=== PATIENT | male | born 1970 | race Caucasian/White ===

== ENCOUNTER 2017-03-07 02:26 | Emergency (ER) | payer SELFPAY ==
[2017-03-07 03:25] LABS: APPEARANCE,URINE CLEAR; BILIRUBIN,URINE NEGATIVE (NEGATIVE); GLUCOSE, URINE NEGATIVE (NEGATIVE); KETONES,URINE NEGATIVE (NEGATIVE); LEUKOCYTE ESTERASE,URINE NEGATIVE (NEGATIVE); NITRITE,URINE NEGATIVE (NEGATIVE); PROTEIN,URINE NEGATIVE (NEGATIVE); URINE SPECIFIC GRAVITY 1.001; UROBILINOGEN,URINE NEGATIVE mg/dL (<2.0)
--- NOTE | 2017-03-07 03:28 | ER Document Report ---
ED General - General Stated Complaint: FOOT SWELLING Time Seen by Provider: 03/07/17 02:32 Mode of Arrival: Medic Information source: Patient, Emergency Med Personnel Notes: Patient presents emergency department via EMS for complaints of toe pain and positive EtOH. Patient requesting detox. Patient reports he hurt his toe approximately 2 weeks ago. He states the toe was purple but now is looking better. Reports toe is so painful he has a hard time walking. Denies other sx such as fever/vomiting/ diarrhea. TRAVEL OUTSIDE OF THE [place] IN LAST 30 DAYS: No - HPI Onset: Other Onset/Duration: Persistent Quality of pain: Achy Associated symptoms: None Exacerbated by: Walking Relieved by: Denies Similar symptoms previously: No Recently seen / treated by doctor: No - Related Data Allergies/Adverse Reactions: bacitracin [From Neosporin] Allergy (Verified 12/20/12 01:16) bacitracin zinc [From Neosporin] Allergy (Verified 12/20/12 01:16) gramicidin D [From Neosporin] Allergy (Verified 12/20/12 01:16) neomycin sulfate [From Neosporin] Allergy (Verified 12/20/12 01:16) polymyxin B [From Neosporin] Allergy (Verified 12/20/12 01:16) polymyxin B sulfate [From Neosporin] Allergy (Verified 12/20/12 01:16) Past Medical History - General Information source: Patient - Social History Smoking Status: Current Every Day Smoker Cigarette use (# per day): Yes Chew tobacco use (# tins/day): No Frequency of alcohol use: Heavy Drug Abuse: Methamphetamine Lives with: Family - brother Family History: Reviewed & Not Pertinent - Past Medical History Cardiac Medical History: Reports: Hx Hypertension Past Surgical History: Reports: Hx Orthopedic Surgery Review of Systems - Review of Systems Notes: Review HPI for review of systems., All other systems negative Physical Exam - Vital signs Vitals: Resp Pulse Ox 12 98 03/07/17 02:42 03/07/17 02:42 - Notes Notes: PHYSICAL EXAMINATION: GENERAL: nontoxic looking, answers all questions appropriately HEAD: Atraumatic, normocephalic. EYES: Pupils equal round and reactive to light, extraocular movements intact, sclera anicteric, conjunctiva are normal. ENT: nares patent, Moist mucous membranes. NECK: Normal range of motion, supple without lymphadenopathy LUNGS: CTAB and equal. No wheezes rales or rhonchi. no cough HEART: Regular rate and rhythm without murmurs ABDOMEN: Soft, no tenderness. No guarding, no rebound EXTREMITIES: Normal range of motion, no pitting edema. No cyanosis. right great toe with swelling, erythema, scaling toenail, NEUROLOGICAL: Cranial nerves grossly intact. Normal sensory/motor exams. PSYCH: Normal mood, normal affect. SKIN: Warm, Dry, normal turgor, no rashes or lesions noted Course - Re-evaluation Re-evalutation: 03/07/17 03:38 Patient left the building was found in a parking lot patient is walking steady. Patient was encouraged to return to the emergency department needed. Patient admits to EtOH and using meth. Complaining that his foot was hurting will give him some Tylenol 03/07/17 03:[address] coates, pt reports he will stay for evaluation 03/07/17 05:10 + comminuted intraarticular fracture. Patient requesting to leave. He is alert and oriented walking steadily not slurring his words. Reviewed his labs and x-ray with him. Patient was instructed to follow-up with [place] [facility] for detox. pt declined ori tape or any further treatment - Vital Signs Vital signs: Temp Pulse Resp BP Pulse Ox 21 H 163/111 H 98 03/07/17 03:01 03/07/17 04:16 03/07/17 04:16 - Laboratory Result Diagrams: 03/07/17 03:47 03/07/17 03:47 Laboratory results interpreted by me: 03/07/17 03/07/17 03:47 03:47 MCV 100 H Seg Neutrophils % 38.7 L Monocytes % 13.3 H Potassium 5.1 H AST 172 H ALT 151 H Alkaline Phosphatase 145 H Total Protein 8.6 H Salicylates < 1.0 L Acetaminophen < 10 L - EKG Interpretation by Pr EKG shows normal: Sinus rhythm Rate: Tachycardia Discharge - Discharge Clinical Impression: Elevated blood pressure reading, Alcohol abuse, Substance abuse Fractured great toe Qualifiers: Encounter type: initial encounter Fracture type: closed Phalanx: distal Fracture alignment: nondisplaced Laterality: right Qualified Code(s): S92.424A - Nondisplaced fracture of distal phalanx of right great toe, initial encounter for closed fracture Condition: Stable Disposition: HOME, SELF-CARE Instructions: Fracture ([facility]), High Blood Pressure, Requiring Treatment ([facility]), Chronic Alcoholism ([facility]) Additional Instructions: *You have been evaluated for Chronic alcohol abuse, FRACTURED GREAT TOE, elevated blood pressure *Your xray showed a comminuted intra-articular fracture of the right great toe *Maintain the ori tape *Follow up with orthopedics this week *Rest/Ice/Elevate your foot, monitor your foot for increased pain, swelling, warmth, redness which would indicate infection *Follow up with a primary care provider to treat your blood pressure *Avoid alcohol, seek assistance from [facility] [employer] [facility], alcoholics anonymous. *Take tylenol as indicated *Return to ED for worsening condition, changes, needs Forms: Elevated Blood Pressure
[2017-03-07 03:39] LABS: URINE BARBITURATES SCREEN NEGATIVE; URINE METHADONE SCREEN NEGATIVE; URINE OPIATES LOW NEGATIVE; URINE PHENCYCLIDINE SCREEN NEGATIVE
[2017-03-07] MEDS ORDERED: ACETAMINOPHEN 325 MG TABLET PO ONE (03:39)
[2017-03-07 03:46] LABS: WBC,URINE RARE /HPF
[2017-03-07 04:06] LABS: ABSOLUTE EOSINOPHILS # (AUTO) 0.2 10^3/uL (0.0-0.6); ABSOLUTE MONOCYTES (AUTO) 0.9 10^3/uL (0.1-1.4); ABSOLUTE NEUT (AUTO) 2.6 10^3/uL (1.7-8.2); BASOPHILS % (AUTO) 0.7 % (0-2); EOSINOPHILS % (AUTO) 2.5 % (0-6); HEMATOCRIT 46.4 % (37.9-51.0); HEMOGLOBIN 15.2 g/dL (13.5-17.0); HGB HCT DIFFERENCE -0.8; LYMPHOCYTES % (AUTO) 44.8 % (13-45); MEAN CORPUSCULAR HEMOGLOBIN 32.8 pg (27.0-33.4); MEAN CORPUSCULAR HGB CONC 32.8 g/dL (32.0-36.0); MEAN CORPUSCULAR VOLUME 100 fl (80-97); MONOCYTES % (AUTO) 13.3 % (3-13); RED BLOOD COUNT 4.63 10^6/uL (4.35-5.55); SEGMENTED NEUTROPHILS % (AUTO) 38.7 % (42-78); WHITE BLOOD COUNT 6.7 10^3/uL (4.0-10.5)
[2017-03-07 04:21] VITALS: BP 163/111
[2017-03-07 04:23] LABS: ALANINE AMINOTRANSFERASE 151 U/L (21-72); ALBUMIN 4.7 g/dL (3.5-5.0); ALKALINE PHOSPHATASE 145 U/L (38-126); ANION GAP 15 (5-19); ASPARTATE AMINO TRANSFERASE 172 U/L (17-59); BILIRUBIN,DIRECT 0.3 mg/dL (0.0-0.4); BILIRUBIN,TOTAL 0.6 mg/dL (0.2-1.3); BLOOD UREA NITROGEN 12 mg/dL (7-20); CALCIUM 9.6 mg/dL (8.4-10.2); CARBON DIOXIDE 29 mmol/L (22-30); CHLORIDE 100 mmol/L (98-107); CREATININE RESULT 0.81 mg/dL (0.52-1.25); GLUCOSE 94 mg/dL (75-110); POTASSIUM 5.1 mmol/L (3.6-5.0); SODIUM 143.7 mmol/L (137-145); TOTAL PROTEIN 8.6 g/dL (6.3-8.2)
--- NOTE | 2017-03-07 05:01 | RADIOLOGY REPORT (SQ) ---
EXAM DESCRIPTION: FOOT RIGHT COMPLETE COMPLETED DATE/TIME: 03/07/2017 4:48 am REASON FOR STUDY: PAIN, GREAT TOE SWELLING,ERYTHEMA COMPARISON: None. NUMBER OF VIEWS: Three views. TECHNIQUE: AP, lateral and oblique radiographic images acquired of the right foot. LIMITATIONS: None. FINDINGS: MINERALIZATION: Normal. BONES: Comminuted intra-articular fracture of the right 1st proximal phalanx with 0.3 cm distraction, involvement of the entire diaphysis, and extension into the right 1st IP joint ; no evidence of heal ing in new compared with prior radiographs from 09/21/2014. Moderate deformity -sclerosis of the talo calcaneal and calcaneal cuboid joints, with diminished calcaneal inclination, stable. JOINTS: No effusions. SOFT TISSUES: No soft tissue swelling. No foreign body. OTHER: No other significant finding. IMPRESSION: Comminuted intra-articular fracture of the right 1st proximal phalanx. TECHNICAL DOCUMENTATION: JOB ID: [id number] [employer]- All Rights Reserved
--- NOTE | 2017-03-07 08:41 | EKG REPORT ---
SEVERITY:- ABNORMAL ECG - SINUS TACHYCARDIA LEFT VENTRICULAR HYPERTROPHY ST ELEV, PROBABLE NORMAL EARLY REPOL PATTERN BORDERLINE PROLONGED QT INTERVAL : Confirmed by: Polo Dickey 07-Mar-2017 08:40:20
== END 2017-03-07 05:30 | disposition home or self-care (01) ==
LOC: ER 02:26
DX: S92.414A Nondisplaced fracture of proximal phalanx of right great toe, initial encounter for closed fracture (principal); X58.XXXA Exposure to other specified factors, initial encounter; F10.10 Alcohol abuse, uncomplicated; F15.10 Other stimulant abuse, uncomplicated; I10 Essential (primary) hypertension; R00.0 Tachycardia, unspecified; F17.210 Nicotine dependence, cigarettes, uncomplicated; Z88.3 Allergy status to other anti-infective agents
CPT/HCPCS: 36415; 80053; 80307; 81001; 85025; 93005; 93010; 99284

== ENCOUNTER 2017-03-25 19:30 | Emergency (ER) | payer SELFPAY ==
--- NOTE | 2017-03-25 19:54 | ER Document Report ---
ED Medical Screen (RME) - General Chief Complaint: ETOH Abuse Stated Complaint: ETOH Time Seen by Provider: 03/25/17 19:51 Mode of Arrival: Medic Information source: Patient TRAVEL OUTSIDE OF THE [place] IN LAST 30 DAYS: No - HPI Patient complains to provider of: detox from ETOH, meth Onset: Other - pt states he is "tired" of abusing alcohol and meth and wants help with detox from these. He denies SI and HI - Related Data Allergies/Adverse Reactions: bacitracin [From Neosporin] Allergy (Verified 12/20/12 01:16) bacitracin zinc [From Neosporin] Allergy (Verified 12/20/12 01:16) gramicidin D [From Neosporin] Allergy (Verified 12/20/12 01:16) neomycin sulfate [From Neosporin] Allergy (Verified 12/20/12 01:16) polymyxin B [From Neosporin] Allergy (Verified 12/20/12 01:16) polymyxin B sulfate [From Neosporin] Allergy (Verified 12/20/12 01:16) Past Medical History - Past Medical History Cardiac Medical History: Reports: Hx Hypertension Renal/ Medical History: Denies: Hx Peritoneal Dialysis Past Surgical History: Reports: Hx Orthopedic Surgery Physical Exam - Vital signs Vitals: Temp Pulse Resp BP Pulse Ox 98.3 F 83 18 137/100 H 97 03/25/17 19:37 03/25/17 19:37 03/25/17 19:37 03/25/17 19:37 03/25/17 19:37 Course - Vital Signs Vital signs: Temp Pulse Resp BP Pulse Ox 98.3 F 83 18 137/100 H 97 03/25/17 19:37 03/25/17 19:37 03/25/17 19:37 03/25/17 19:37 03/25/17 19:37
[2017-03-25 20:17] LABS: ABSOLUTE EOSINOPHILS # (AUTO) 0.2 10^3/uL (0.0-0.6); ABSOLUTE LYMPHOCYTES (AUTO) 2.3 10^3/uL (0.5-4.7); ABSOLUTE MONOCYTES (AUTO) 0.6 10^3/uL (0.1-1.4); ABSOLUTE NEUT (AUTO) 1.5 10^3/uL (1.7-8.2); BASOPHILS % (AUTO) 0.8 % (0-2); EOSINOPHILS % (AUTO) 3.5 % (0-6); HEMATOCRIT 43.7 % (37.9-51.0); HEMOGLOBIN 14.4 g/dL (13.5-17.0); HGB HCT DIFFERENCE -0.5; LYMPHOCYTES % (AUTO) 49.8 % (13-45); MEAN CORPUSCULAR HEMOGLOBIN 33.6 pg (27.0-33.4); MEAN CORPUSCULAR VOLUME 102 fl (80-97); MONOCYTES % (AUTO) 13.2 % (3-13); RED CELL DISTRIBUTION WIDTH 14.3 % (11.5-14.0); SEGMENTED NEUTROPHILS % (AUTO) 32.7 % (42-78); WHITE BLOOD COUNT 4.7 10^3/uL (4.0-10.5)
[2017-03-25 20:37] LABS: ALANINE AMINOTRANSFERASE 396 U/L (21-72); ALBUMIN 4.2 g/dL (3.5-5.0); ALKALINE PHOSPHATASE 126 U/L (38-126); ANION GAP 13 (5-19); ASPARTATE AMINO TRANSFERASE 509 U/L (17-59); BILIRUBIN,DIRECT 0.3 mg/dL (0.0-0.4); BILIRUBIN,TOTAL 0.5 mg/dL (0.2-1.3); BLOOD UREA NITROGEN 10 mg/dL (7-20); CALCIUM 8.9 mg/dL (8.4-10.2); CARBON DIOXIDE 22 mmol/L (22-30); CHLORIDE 110 mmol/L (98-107); CREATININE RESULT 0.76 mg/dL (0.52-1.25); GLUCOSE 101 mg/dL (75-110); POTASSIUM 4.7 mmol/L (3.6-5.0); SODIUM 144.6 mmol/L (137-145); TOTAL PROTEIN 7.8 g/dL (6.3-8.2)
--- NOTE | 2017-03-25 20:41 | ER Document Report ---
ED Psych Disorder / Suicide - General Chief Complaint: ETOH Abuse Stated Complaint: ETOH Time Seen by Provider: 03/25/17 19:51 Mode of Arrival: Medic Notes: Patient is a 46-year-old male, past medical history alcoholism, chronic methamphetamine abuse, presents with thoughts of killing his brother. He said that he was drinking alcohol, abusing meth and is requesting detox. In addition , he is also having pain of his right first toe for the past 3 weeks after he dropped a heavy block on it. He had an x-ray completed in the ER which showed a comminuted first phalanx. He has not taken anything to help and has not seen orthopedics or podiatry for this. Denies suicidal ideation, fevers, numbness, tingling, chest pain, hallucinations, nausea, vomiting or headache. TRAVEL OUTSIDE OF THE [place] IN LAST 30 DAYS: No - Related Data Allergies/Adverse Reactions: bacitracin [From Neosporin] Allergy (Verified 12/20/12 01:16) bacitracin zinc [From Neosporin] Allergy (Verified 12/20/12 01:16) gramicidin D [From Neosporin] Allergy (Verified 12/20/12 01:16) neomycin sulfate [From Neosporin] Allergy (Verified 12/20/12 01:16) polymyxin B [From Neosporin] Allergy (Verified 12/20/12 01:16) polymyxin B sulfate [From Neosporin] Allergy (Verified 12/20/12 01:16) Past Medical History - General Information source: Patient - Social History Smoking Status: Current Every Day Smoker Frequency of alcohol use: Heavy Drug Abuse: Methamphetamine Family History: Reviewed & Not Pertinent Patient has suicidal ideation: No Patient has homicidal ideation: Yes - Past Medical History Cardiac Medical History: Reports: Hx Hypertension Renal/ Medical History: Denies: Hx Peritoneal Dialysis Past Surgical History: Reports: Hx Orthopedic Surgery - Immunizations Hx Diphtheria, Pertussis, Tetanus Vaccination: No Review of Systems - Review of Systems Notes: REVIEW OF SYSTEMS: CONSTITUTIONAL: -fevers, -chills EENT: -eye pain, -difficulty swallowing, -nasal congestion CARDIOVASCULAR:-chest pain, -syncope. RESPIRATORY: -cough, -SOB GASTROINTESTINAL: -abdominal pain, -nausea, -vomiting, -diarrhea GENITOURINARY: -dysuria, -hematuria MUSCULOSKELETAL: +toe pain, -back pain, -neck pain SKIN: -rash or skin lesions. HEMATOLOGIC: -easy bruising or bleeding. LYMPHATIC: -swollen, enlarged glands. NEUROLOGICAL: -altered mental status or loss of consciousness, -headache, - neurologic symptoms PSYCHIATRIC: -anxiety, -depression, +homicidal ideation, +chronic ETOH/meth abuse ALL OTHER SYSTEMS REVIEWED AND NEGATIVE. Physical Exam - Vital signs Vitals: Temp Pulse Resp BP Pulse Ox 98.3 F 83 18 137/100 H 97 03/25/17 19:37 03/25/17 19:37 03/25/17 19:37 03/25/17 19:37 03/25/17 19:37 - Notes Notes: PHYSICAL EXAMINATION: GENERAL: Well-appearing, well-nourished and in no acute distress. Disheveled. HEAD: Atraumatic, normocephalic. EYES: Pupils equal round and reactive to light, extraocular movements intact, sclera anicteric, conjunctiva are normal. ENT: nares patent, oropharynx clear without exudates. Moist mucous membranes. NECK: Normal range of motion, supple without lymphadenopathy LUNGS: Breath sounds clear to auscultation bilaterally and equal. No wheezes rales or rhonchi. HEART: Regular rate and rhythm without murmurs ABDOMEN: Soft, nontender, normoactive bowel sounds. No guarding, no rebound. No masses appreciated. EXTREMITIES: Swelling and tenderness of right 1st toe. Normal range of motion, no pitting or edema. No cyanosis. NEUROLOGICAL: Cranial nerves grossly intact. Normal speech, normal gait. Normal sensory and motor exams. PSYCH: Depressed mood. Clinically intoxicated. Homicidal ideation (wants to kill brother, no plan). SKIN: Warm, Dry, normal turgor, no rashes or lesions noted. Course - Re-evaluation Re-evalutation: Patient with homicidal ideation. IVC paperwork filled out. He is clinically intoxicated and recently used methamphetamines. He is requesting detox at this time. Will provide Neurontin to help with any withdrawal symptoms. His right big toe is fractured from 3 weeks ago. Instructed him that he must follow-up with orthopedics for further evaluation and treatment. Provided him with Motrin and ice packs to help. Mental Health will evaluate patient in the morning. - Vital Signs Vital signs: Temp Pulse Resp BP Pulse Ox 98.0 F 90 18 141/92 H 98 03/25/17 21:33 03/25/17 21:33 03/25/17 21:33 03/25/17 21:33 03/25/17 21:33 - Laboratory Result Diagrams: 03/25/17 19:55 03/25/17 19:55 Laboratory results interpreted by me: 03/25/17 03/25/17 03/25/17 19:55 19:55 19:55 RBC 4.30 L MCV 102 H MCH 33.6 H RDW 14.3 H Seg Neutrophils % 32.7 L Lymphocytes % 49.8 H Monocytes % 13.2 H Absolute Neutrophils 1.5 L Chloride 110 H AST 509 H ALT 396 H Salicylates < 1.0 L Acetaminophen < 10 L Serum Alcohol 328 H* Discharge - Discharge Clinical Impression: Homicidal ideation Fracture, phalanx, foot Qualifiers: Encounter type: initial encounter Toe: great toe Fracture type: closed Phalanx : unspecified phalanx Fracture alignment: nondisplaced Laterality: right Qualified Code(s): S92.404A - Nondisplaced unspecified fracture of right great toe, initial encounter for closed fracture Condition: Stable Disposition: PSYCH HOSP/UNIT
[2017-03-25 20:44] LABS: APPEARANCE,URINE CLEAR; BILIRUBIN,URINE NEGATIVE (NEGATIVE); GLUCOSE, URINE NEGATIVE (NEGATIVE); KETONES,URINE NEGATIVE (NEGATIVE); LEUKOCYTE ESTERASE,URINE NEGATIVE (NEGATIVE); NITRITE,URINE NEGATIVE (NEGATIVE); PROTEIN,URINE NEGATIVE (NEGATIVE); URINE SPECIFIC GRAVITY 1.004; UROBILINOGEN,URINE NEGATIVE mg/dL (<2.0)
[2017-03-25 20:49] LABS: ALCOHOL 328 mg/dL (NONE DETECTED)
[2017-03-25 21:01] LABS: URINE BARBITURATES SCREEN NEGATIVE; URINE METHADONE SCREEN NEGATIVE; URINE OPIATES LOW NEGATIVE; URINE PHENCYCLIDINE SCREEN NEGATIVE
[2017-03-25] MEDS: IBUPROFEN 600 MG TABLET PO PRN (21:32)
[2017-03-25] MEDS: GABAPENTIN 400 MG CAPSULE PO SCH (21:32)
[2017-03-25] MEDS ORDERED: NICOTINE 21 MG/24 HR PATCH.TD24 TD ONE (22:52)
[2017-03-26] MEDS: IBUPROFEN 600 MG TABLET PO PRN ×2 (02:39→06:42)
[2017-03-26] MEDS: GABAPENTIN 400 MG CAPSULE PO SCH ×2 (06:43→13:06)
--- NOTE | 2017-03-26 09:28 | ER Document Report ---
Doctor's Note Notes: 03/26/17 09:26 I have evaluated this pt. this am and he has no c/o at this time. He feels all of his needs are being met and his physical exam is normal. He is awaiting disposition per mental health.
[2017-03-26 12:58] VITALS: BP 141/79
== END 2017-03-26 13:30 | disposition home or self-care (01) ==
LOC: ER 19:30
DX: S92.404A Nondisplaced unspecified fracture of right great toe, initial encounter for closed fracture (principal); F10.10 Alcohol abuse, uncomplicated; F15.10 Other stimulant abuse, uncomplicated; R45.850 Homicidal ideations; W20.8XXA Other cause of strike by thrown, projected or falling object, initial encounter
CPT/HCPCS: 36415; 80053; 80307; 81001; 85025; 99284

== ENCOUNTER 2017-04-29 20:30 | Emergency (ER) | payer SELFPAY ==
[2017-04-29] MEDS ORDERED: LORAZEPAM INJ 2 MG/1 ML VIAL IV ONE (20:55)
--- NOTE | 2017-04-29 20:55 | ER Document Report ---
ED General - General Stated Complaint: WEAKNESS Time Seen by Provider: 04/29/17 20:43 Mode of Arrival: Ambulatory Information source: Patient Notes: This is a 47-year-old man with a history significant for alcohol abuse, alcohol withdrawal, presents to the emergency room wanting detox. He states his last drink was 1 hour ago. He does state his already has the shakes. TRAVEL OUTSIDE OF THE [place] IN LAST 30 DAYS: No - HPI Onset: Last week Onset/Duration: Gradual Quality of pain: No pain Severity: None Pain Level: Denies Associated symptoms: denies: Chest pain, Fever, Shortness of breath Exacerbated by: Denies Relieved by: Denies Similar symptoms previously: No Recently seen / treated by doctor: No - Related Data Allergies/Adverse Reactions: bacitracin [From Neosporin] Allergy (Verified 12/20/12 01:16) bacitracin zinc [From Neosporin] Allergy (Verified 12/20/12 01:16) gramicidin D [From Neosporin] Allergy (Verified 12/20/12 01:16) neomycin sulfate [From Neosporin] Allergy (Verified 12/20/12 01:16) polymyxin B [From Neosporin] Allergy (Verified 12/20/12 01:16) polymyxin B sulfate [From Neosporin] Allergy (Verified 12/20/12 01:16) Past Medical History - General Information source: Patient - Social History Smoking Status: Never Smoker Cigarette use (# per day): No Chew tobacco use (# tins/day): No Frequency of alcohol use: None Drug Abuse: None Lives with: Family Family History: Reviewed & Not Pertinent Patient has suicidal ideation: No Patient has homicidal ideation: No - Past Medical History Cardiac Medical History: Reports: Hx Hypertension Pulmonary Medical History: Reports: None EENT Medical History: Reports: None Neurological Medical History: Reports: None Endocrine Medical History: Reports: None Renal/ Medical History: Denies: Hx Peritoneal Dialysis GI Medical History: Reports: None Musculoskeltal Medical History: Reports None Skin Medical History: Reports None Psychiatric Medical History: Reports: None Traumatic Medical History: Reports: None Infectious Medical History: Reports: None Past Surgical History: Reports: Hx Orthopedic Surgery - Immunizations Hx Diphtheria, Pertussis, Tetanus Vaccination: No Review of Systems - Review of Systems Constitutional: denies: Chills, Fever EENT: No symptoms reported Cardiovascular: No symptoms reported Respiratory: No symptoms reported Gastrointestinal: No symptoms reported Genitourinary: No symptoms reported Male Genitourinary: No symptoms reported Musculoskeletal: No symptoms reported Skin: No symptoms reported Hematologic/Lymphatic: No symptoms reported Neurological/Psychological: See HPI Physical Exam - Vital signs Vitals: Resp Pulse Ox 11 L 98 04/29/17 20:38 04/29/17 20:38 Notes: Physical exam: GENERAL: Patient is alert and oriented 3, he does have tachycardia with a heart rate of 116 at this time. His blood pressure is currently 160/100. HEAD: Atraumatic, normocephalic. EYES: Pupils equal round and reactive to light, extraocular movements intact, sclera anicteric, conjunctiva are normal. ENT: TMs normal, nares patent, oropharynx clear without exudates. Moist mucous membranes. NECK: Normal range of motion, supple without lymphadenopathy or JVD. LUNGS: Breath sounds clear to auscultation bilaterally and equal. No wheezes rales or rhonchi. HEART: Regular rate and rhythm without murmurs, rubs or gallops. ABDOMEN: Soft, normoactive bowel sounds. No tenderness to palpation. No guarding, no rebound. No masses appreciated. EXTREMITIES: Normal range of motion, no pitting or edema. No clubbing or cyanosis. NEUROLOGICAL: Cranial nerves II through XII grossly intact. Normal speech, normal gait. PSYCH: Normal mood, normal affect. SKIN: Warm, Dry, normal turgor, no rashes or lesions noted. Course - Re-evaluation Re-evalutation: 04/30/17 03:08 The patient is medically stable for psychiatric disposition or discharge. - Vital Signs Vital signs: Temp Pulse Resp BP Pulse Ox 15 173/82 H 98 04/30/17 02:10 04/30/17 02:10 04/30/17 02:10 - Laboratory Result Diagrams: 04/29/17 21:00 04/29/17 21:00 Laboratory results interpreted by me: 04/29/17 04/29/17 04/29/17 21:00 21:00 21:00 MCV 102 H MCH 34.5 H AST 177 H ALT 162 H Urine Protein 30 H Salicylates < 1.0 L Acetaminophen < 10 L - EKG Interpretation by Me Rate: Tachycardia Rhythm: NSR - EKG shows sinus tachycardia with a ventricular rate of 100, there is LVH, PVCs, there does appear to be benign early repolarization. Patient is not having any chest pain or shortness of breath at this time. The patient does have a history of early repolarization as well as LVH on a previous EKG () Discharge - Discharge Clinical Impression: Alcohol intoxication, Alcohol dependence Condition: Stable Disposition: PSYCH HOSP/UNIT
[2017-04-29] MEDS ORDERED: THIAMINE HCL 100 MG in NORMAL SALINE 50 ML IV ONE (20:56)
[2017-04-29] MEDS ORDERED: FOLIC ACID 1 MG TABLET PO ONE (20:56)
[2017-04-29] MEDS: NORMAL SALINE 1000 ML 1,000 ML IV PRN (21:07)
[2017-04-29 21:12] LABS: ABSOLUTE EOSINOPHILS # (AUTO) 0.2 10^3/uL (0.0-0.6); ABSOLUTE LYMPHOCYTES (AUTO) 2.2 10^3/uL (0.5-4.7); ABSOLUTE MONOCYTES (AUTO) 1.1 10^3/uL (0.1-1.4); ABSOLUTE NEUT (AUTO) 5.7 10^3/uL (1.7-8.2); BASOPHILS % (AUTO) 0.5 % (0-2); EOSINOPHILS % (AUTO) 2.3 % (0-6); HEMATOCRIT 47.1 % (37.9-51.0); HGB HCT DIFFERENCE 0.9; LYMPHOCYTES % (AUTO) 23.9 % (13-45); MEAN CORPUSCULAR HEMOGLOBIN 34.5 pg (27.0-33.4); MEAN CORPUSCULAR HGB CONC 33.9 g/dL (32.0-36.0); MEAN CORPUSCULAR VOLUME 102 fl (80-97); MONOCYTES % (AUTO) 11.5 % (3-13); RED BLOOD COUNT 4.64 10^6/uL (4.35-5.55); RED CELL DISTRIBUTION WIDTH 13.6 % (11.5-14.0); SEGMENTED NEUTROPHILS % (AUTO) 61.8 % (42-78); WHITE BLOOD COUNT 9.2 10^3/uL (4.0-10.5)
[2017-04-29 21:15] LABS: APPEARANCE,URINE CLEAR; BILIRUBIN,URINE NEGATIVE (NEGATIVE); GLUCOSE, URINE NEGATIVE (NEGATIVE); KETONES,URINE NEGATIVE (NEGATIVE); LEUKOCYTE ESTERASE,URINE NEGATIVE (NEGATIVE); NITRITE,URINE NEGATIVE (NEGATIVE); PROTEIN,URINE 30 mg/dL (NEGATIVE); UROBILINOGEN,URINE NEGATIVE mg/dL (<2.0)
[2017-04-29 21:28] LABS: URINE BARBITURATES SCREEN NEGATIVE; URINE METHADONE SCREEN NEGATIVE; URINE OPIATES LOW NEGATIVE; URINE PHENCYCLIDINE SCREEN NEGATIVE
[2017-04-29 21:29] LABS: ALANINE AMINOTRANSFERASE 162 U/L (21-72); ALBUMIN 4.8 g/dL (3.5-5.0); ALCOHOL 273 mg/dL (NONE DETECTED); ALKALINE PHOSPHATASE 118 U/L (38-126); ANION GAP 13 (5-19); ASPARTATE AMINO TRANSFERASE 177 U/L (17-59); BILIRUBIN,DIRECT 0.4 mg/dL (0.0-0.4); BILIRUBIN,TOTAL 0.6 mg/dL (0.2-1.3); BLOOD UREA NITROGEN 10 mg/dL (7-20); CALCIUM 9.8 mg/dL (8.4-10.2); CARBON DIOXIDE 26 mmol/L (22-30); CHLORIDE 104 mmol/L (98-107); CREATININE RESULT 0.91 mg/dL (0.52-1.25); GLUCOSE 105 mg/dL (75-110); POTASSIUM 4.6 mmol/L (3.6-5.0); SODIUM 143.3 mmol/L (137-145); TOTAL PROTEIN 8.2 g/dL (6.3-8.2)
[2017-04-30] MEDS: LORAZEPAM 1 MG TABLET PO PRN ×2 (04:28→09:03)
--- NOTE | 2017-04-30 07:32 | EKG REPORT ---
SEVERITY:- ABNORMAL ECG - SINUS TACHYCARDIA MULTIPLE VENTRICULAR PREMATURE COMPLEXES LEFT VENTRICULAR HYPERTROPHY ST ELEV, PROBABLE NORMAL EARLY REPOL PATTERN BORDERLINE PROLONGED QT INTERVAL : Confirmed by: Alvin Gutierres MD 30-Apr-2017 07:31:18
[2017-04-30] MEDS: NORMAL SALINE 1000 ML 1,000 ML IV PRN (09:03)
[2017-04-30] MEDS ORDERED: NICOTINE 21 MG/24 HR PATCH.TD24 TD ONE (11:03)
[2017-04-30] MEDS ORDERED: CLONIDINE HCL 0.2 MG TABLET PO ONE (11:04)
--- NOTE | 2017-04-30 11:08 | ER Document Report ---
Doctor's Note Notes: 04/30/17 11:05 Medical rounds: Chart reviewed and patient interviewed briefly. Patient states he is feeling much better, denies somatic complaints. Inquires about follow-up for detox treatment. On examination, he is alert, coherent, and cooperative. He is mildly hypertensive. He is not tachycardic. There are no tremors. Psychosocial consult was apparently submitted when patient was initially evaluated, but is apparently still pending. Patient remains medically stable.
--- NOTE | 2017-04-30 12:30 | ER Document Report ---
ED Psych Disorder / Suicide - General Chief Complaint: Alcohol Withdrawl Stated Complaint: WEAKNESS Time Seen by Provider: 04/29/17 20:43 Mode of Arrival: Ambulatory TRAVEL OUTSIDE OF THE [place] IN LAST 30 DAYS: No - HPI Notes: This is a 47-year-old man with a history significant for alcohol abuse, alcohol withdrawal, presents to the emergency room wanting detox. He states his last drink was 1 hour ago. He does state his already has the shakes. Patient discloses that he would like to go to detox. Patient abuses alcohol and uses methamphetamine approximately twice a week. Patient disclosed that he also hears voices. He states they are inside his head most the time; however, sometimes it is outside. Patient disclosed he knows the voice because it is the "roopa from down the street." Voices tend to be negative; "that boy ain't right.... I'm going to beat your ." Patient denies currently hearing them. He states that the voices are "much worse when I am doing meth." Patient asked if he records, with his phone, will the voices he hears in his head show up on the phone. Clinician notes patient toxicology indicate alcohol; however, by the time evaluation occurred patient was under the legal limit. Patient is alert and orientated to person, place, time and circumstance. Mood is euthymic with congruent affect. Patient denies suicidal and homicidal ideation. Patient endorses auditory hallucinations however patient describes symptom congruent with side effect from substance intoxication. Delusions were absent and behaviors congruent with an intact reality based presentation (i.e. organized linear thought processes). Eye contact was fair. Intellectual ability appears to be low average range. Attention and concentration were good. 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 Patient does not meet IVC criteria per [place] GS 122C. Patient denies suicidal and homicidal ideation. Lesions were absent and behaviors are congruent with intact reality based presentation rent i.e. organized and linear thought processes). Patient discloses auditory hallucinations however symptoms described are more congruent with side effect from intoxication. Patient is recommended to obtain sobriety to better evaluate patient's mental health symptoms. Patient is recommended for substance abuse treatment through [facility]. Dr. Vizcaino was consulted on the care and management of this patient; attending physician is in agreement with recommendations and disposition. - Related Data Allergies/Adverse Reactions: bacitracin [From Neosporin] Allergy (Verified 12/20/12 01:16) bacitracin zinc [From Neosporin] Allergy (Verified 12/20/12:16) gramicidin D [From Neosporin] Allergy (Verified 12/20/12:16) neomycin sulfate [From Neosporin] Allergy (Verified 12/20/12:16) polymyxin B [From Neosporin] Allergy (Verified 12/20/12:16) polymyxin B sulfate [From Neosporin] Allergy (Verified 12/20/12:16) Past Medical History - General Information source: Patient - Social History Smoking Status: Never Smoker Cigarette use (# per day): No Chew tobacco use (# tins/day): No Frequency of alcohol use: None Drug Abuse: None Lives with: Family Family History: Reviewed & Not Pertinent Patient has suicidal ideation: No Patient has homicidal ideation: No - Past Medical History Cardiac Medical History: Reports: Hx Hypertension Pulmonary Medical History: Reports: None EENT Medical History: Reports: None Neurological Medical History: Reports: None Endocrine Medical History: Reports: None Renal/ Medical History: Denies: Hx Peritoneal Dialysis GI Medical History: Reports: None Musculoskeltal Medical History: Reports None Skin Medical History: Reports None Psychiatric Medical History: Reports: None Traumatic Medical History: Reports: None Infectious Medical History: Reports: None Past Surgical History: Reports: Hx Orthopedic Surgery - Immunizations Hx Diphtheria, Pertussis, Tetanus Vaccination: No Physical Exam - Vital signs Vitals: Resp Pulse Ox 11 L 98 04/29/17 20:38 04/29/17 20:38 Course - Vital Signs Vital signs: Temp Pulse Resp BP Pulse Ox 18 143/84 H 98 04/30/17 10:01 04/30/17 09:02 04/30/17 10:01 - Laboratory Result Diagrams: 04/29/17 21:00 04/29/17 21:00 Laboratory results interpreted by me: 04/29/17 04/29/17 04/29/17 21:00 21:00 21:00 MCV 102 H MCH 34.5 H AST 177 H ALT 162 H Urine Protein 30 H Salicylates < 1.0 L Acetaminophen < 10 L Discharge - Discharge Clinical Impression: Alcohol intoxication, Alcohol dependence Condition: Stable Disposition: HOME, SELF-CARE Additional Instructions: ACUTE ALCOHOL INTOXICATION and ALCOHOL ABUSE: Your evaluation revealed very high levels of alcohol. You can from drinking a large amount of alcohol rapidly! Further, there's the risk of falls , traffic accidents, and fights. A high portion (about 50 percent) of the serious injuries seen in hospital emergency rooms are caused by alcohol. Alcohol overdosage is usually due to an underlying emotional or psychiatric problem. You may benefit from counselling. If "binge" drinking is an ongoing problem for you, or if you drink ANY AMOUNT of alcohol EVERY day, you most likely have a tendency to alcoholism. You should avoid alcohol totally. We can refer you for treatment. Persons with alcohol problems are often also prone to other addictions -- you should discuss any use of medications or drugs with the doctor. You should be watched at home for the next several hours by someone who has not been drinking. Get extra fluids for the next 24 hours. Call the doctor if there is repeated vomiting, increasing headache, decreasing level of alertness, or any other worsening. CHRONIC ALCOHOLISM and ALCOHOL ABUSE: Your evaluation reveals evidence of chronic alcoholism, an addiction to alcohol. The tendency to alcoholism may be inherited. Chronic use of alcohol weakens muscles, causes fatty deposits in the liver , damages the stomach, makes you more prone to infections, and can cause defects in unborn children. In the long run, brain atrophy and cirrhosis of the liver result. You are also at greater risk for certain types of cancer, such as cancer of the mouth, throat, stomach, and liver. Counselling services are available to help you. In-hospital treatment programs often help. Support groups such as Alcoholics Anonymous can be very useful in beating this addiction. Your physician can make a referral for you. As alcoholics often are prone to other addictions, you should discuss your use of any other medications with the doctor. ALCOHOL WITHDRAWAL: Your symptoms are caused by alcohol withdrawal. After a period of frequent drinking, the brain and body are changed by the alcohol. When you quit or reduce your drinking, the nervous system becomes unstable. Withdrawal symptoms can start a few hours after your last drink, but sometimes don't begin until a couple of days later. Symptoms can include shakiness, sweating, insomnia, nausea , vomiting, fearfulness, hallucinations, and seizures. In addition to the acute effects of alcohol withdrawal, we often have to deal with the medical effects of alcoholism. These problems often include dehydration, stomach irritation, intestinal bleeding, low blood sugar, liver disease, and pancreas inflammation. Treatment for alcohol withdrawal includes mild sedatives, vitamins, and fluids. You need to be with someone who can help if symptoms become severe. Many patients can withdraw at home. Admission to the hospital or a detox facility may be necessary if withdrawal symptoms are severe and uncontrollable. Abstaining from alcohol is the only effective long-term treatment. If you start drinking again, you will not be able to control yourself after the first drink. Treatment programs are available. In addition, many alcoholics benefit from Alcoholics Anonymous or other support groups available through your counselor or buddhist heavy mobile equipment rep[employer]r. [facility] and [facility] are support groups for friends and family members of an alcoholic. Go to the emergency room if you develop persistent vomiting, severe abdominal pain, fever, shortness of breath, hallucinations, uncontrollable tremors, or seizures. AMPHETAMINE / METHAMPHETAMINE ABUSE: Amphetamines are addicting stimulants. Amphetamines overstimulate the nervous system and give a false feeling of power and mastery. These drugs may be obtained as prescription pills for weight loss, narcolepsy, or attention- deficit disorder. More often they're bought as an illegal street drug, methamphetamine (crank, crystal, speed). Using amphetamines repeatedly can lead to serious medical problems including malnutrition, severe depression, and paranoia. It can take increasing amounts to feel good. Eventually, there will be a "burn out." When you go off amphetamines there is a period of depression that may last for weeks or even months. High doses of amphetamines can cause seizures, confusion, hallucinations, delusions, high blood pressure, muscle damage, heart damage, or sudden . Many times these deadly complications occur even with "normal" doses. Injection of amphetamines is risky for developing abscesses, endocarditis ( heart infection), pneumonia, and AIDS. Withdrawal from amphetamines often causes anxiety, depression, and drug cravings. Some users become paranoid and psychotic. There may be cramps, nausea , and vomiting. Many treatment programs are available, but you must make the decision to quit. Medication can be prescribed to control the symptoms of amphetamine toxicity (beta blockers or benzodiazepines). Withdrawal symptoms may require tranquilizers. FOLLOW-UP CARE: Please follow [facility] for you out patient substance abuse treatment in 3-5 days. You have also been provided a resource list of detox facilities. If you experience worsening or a significant change in your symptoms, notify the physician immediately or return to the Emergency Department at any time for re-evaluation. Referrals: [facility] [Outside] - Follow up in 3-5 days
[2017-04-30 13:15] VITALS: BP 137/83
== END 2017-04-30 13:45 | disposition home or self-care (01) ==
LOC: ER 20:30
DX: F10.229 Alcohol dependence with intoxication, unspecified (principal); R53.1 Weakness
CPT/HCPCS: 93005; 99285; 96360; 96361; 96374; 96375; 36415; 80307 ×4; 83735; 85025; 80053; 81001; 93010; J2060; J3411; J7030 ×2

== ENCOUNTER 2017-05-02 19:46 | Emergency (ER) | payer SELFPAY ==
[2017-05-02 21:06] LABS: ABSOLUTE EOSINOPHILS # (AUTO) 0.2 10^3/uL (0.0-0.6); ABSOLUTE MONOCYTES (AUTO) 0.4 10^3/uL (0.1-1.4); ABSOLUTE NEUT (AUTO) 2.8 10^3/uL (1.7-8.2); BASOPHILS % (AUTO) 0.7 % (0-2); EOSINOPHILS % (AUTO) 3.9 % (0-6); HEMATOCRIT 42.9 % (37.9-51.0); HEMOGLOBIN 14.8 g/dL (13.5-17.0); HGB HCT DIFFERENCE 1.5; LYMPHOCYTES % (AUTO) 36.6 % (13-45); MEAN CORPUSCULAR HGB CONC 34.6 g/dL (32.0-36.0); MEAN CORPUSCULAR VOLUME 101 fl (80-97); MONOCYTES % (AUTO) 7.5 % (3-13); RED BLOOD COUNT 4.24 10^6/uL (4.35-5.55); RED CELL DISTRIBUTION WIDTH 13.5 % (11.5-14.0); SEGMENTED NEUTROPHILS % (AUTO) 51.3 % (42-78); WHITE BLOOD COUNT 5.4 10^3/uL (4.0-10.5)
[2017-05-02 21:09] LABS: APPEARANCE,URINE CLEAR; BILIRUBIN,URINE NEGATIVE (NEGATIVE); GLUCOSE, URINE NEGATIVE (NEGATIVE); KETONES,URINE NEGATIVE (NEGATIVE); LEUKOCYTE ESTERASE,URINE NEGATIVE (NEGATIVE); NITRITE,URINE NEGATIVE (NEGATIVE); PROTEIN,URINE NEGATIVE (NEGATIVE); URINE SPECIFIC GRAVITY 1.004; UROBILINOGEN,URINE NEGATIVE mg/dL (<2.0)
--- NOTE | 2017-05-02 21:13 | ER Document Report ---
ED General - General Chief Complaint: Psych Problem Stated Complaint: PSYCH EVAL Time Seen by Provider: 05/02/17 20:29 Notes: Patient is a 47-year-old male with past medical history of polysubstance abuse, recently evaluated in the emergency department 2 days ago or auditory hallucinations presents today with concerns of ongoing auditory hallucinations with commands. Patient states that he has homicidal ideation towards his brother in somebody who is him money. He denies any specific plan to physically harm these individuals and he does not even know where they are located. Admits that he continues to have auditory hallucinations despite discontinuing methamphetamine use stating his last use was 2 weeks ago. He does not take any psychiatric medications and denies any prior psychiatric diagnoses. He does also complain of a dull, constant aching pain to the right foot that is been present for the past 4 months ever since he dropped a brick on this area. Nothing improves the pain and he states walking on it worsens the pain. Does admit to alcohol use today although does not appear significantly intoxicated at time of assessment. TRAVEL OUTSIDE OF THE [place] IN LAST 30 DAYS: No - Related Data Allergies/Adverse Reactions: bacitracin [From Neosporin] Allergy (Verified 12/20/12 01:16) bacitracin zinc [From Neosporin] Allergy (Verified 12/20/12 01:16) gramicidin D [From Neosporin] Allergy (Verified 12/20/12 01:16) neomycin sulfate [From Neosporin] Allergy (Verified 12/20/12 01:16) polymyxin B [From Neosporin] Allergy (Verified 12/20/12 01:16) polymyxin B sulfate [From Neosporin] Allergy (Verified 12/20/12 01:16) Home Medications: Current Home Medications No Home Medications 05/02/17 [History] Past Medical History - General Information source: Patient - Social History Smoking Status: Current Every Day Smoker Frequency of alcohol use: Heavy Drug Abuse: Cocaine, Marijuana, Methamphetamine Lives with: Alone Family History: Reviewed & Not Pertinent Patient has suicidal ideation: Yes Patient has homicidal ideation: Yes - Past Medical History Cardiac Medical History: Reports: Hx Hypertension Renal/ Medical History: Denies: Hx Peritoneal Dialysis Past Surgical History: Reports: Hx Orthopedic Surgery - Immunizations Hx Diphtheria, Pertussis, Tetanus Vaccination: No Review of Systems - Review of Systems Notes: Constitutional: Negative for fever. HENT: Negative for sore throat. Eyes: Negative for visual changes. Cardiovascular: Negative for chest pain. Respiratory: Negative for shortness of breath. Gastrointestinal: Negative for abdominal pain, vomiting or diarrhea. Genitourinary: Negative for dysuria. Musculoskeletal: Negative for back pain. Skin: Negative for rash. Neurological: Negative for headaches, weakness or numbness. 10 point ROS negative except as marked above and in HPI. Physical Exam - Vital signs Vitals: Temp Pulse Resp BP Pulse Ox 97.5 F 107 H 26 H 152/129 H 94 05/02/17 20:14 05/02/17 20:14 05/02/17 20:14 05/02/17 20:14 05/02/17 20:14 Interpretation: Tachycardic Notes: PHYSICAL EXAMINATION: GENERAL: Well-appearing, well-nourished and in no acute distress. HEAD: Atraumatic, normocephalic. EYES: Pupils equal round and reactive to light, extraocular movements intact, sclera anicteric, conjunctiva are normal. ENT: nares patent, oropharynx clear without exudates. Moist mucous membranes. NECK: Normal range of motion, supple without lymphadenopathy LUNGS: Breath sounds clear to auscultation bilaterally and equal. No wheezes rales or rhonchi. HEART: Regular rate and rhythm without murmurs ABDOMEN: Soft, nontender, normoactive bowel sounds. No guarding, no rebound. No masses appreciated. EXTREMITIES: Normal range of motion, no pitting or edema. No cyanosis. NEUROLOGICAL: No focal neurological deficits. Moves all extremities spontaneously and on command. PSYCH: Normal mood, normal affect. SKIN: Warm, Dry, normal turgor, no rashes or lesions noted. Course - Re-evaluation Re-evalutation: 05/02/17 21:12 Patient presents with auditory hallucinations and homicidal ideation without a specific plan. He denies any active suicidal ideation. He has been evaluated less than 48 hours ago for his auditory hallucinations by psychiatry and was cleared at that time. He does also complain of a chronic right foot pain. Patient is able to voluntarily stay here in the emergency department and speak with psychiatry in the morning but does not meet IVC criteria at this time as his homicidal plan has no specific mechanism and he does not even know with the individuals that he has homicidal ideation are located or how to get hold of them. Physical examination is unremarkable. Medical screening labs have been sent. He is medically cleared for evaluation by psychiatry in the morning. - Vital Signs Vital signs: Temp Pulse Resp BP Pulse Ox 97.5 F 107 H 26 H 152/129 H 94 05/02/17 20:14 05/02/17 20:14 05/02/17 20:14 05/02/17 20:14 05/02/17 20:14 - Laboratory Result Diagrams: 05/02/17 20:45 05/02/17 20:45 Laboratory results interpreted by me: 05/02/17 05/02/17 20:45 20:45 RBC 4.24 L MCV 101 H MCH 35.0 H AST 144 H ALT 131 H Salicylates < 1.0 L Acetaminophen < 10 L Serum Alcohol 330 H* - Diagnostic Test Radiology reviewed: Image reviewed, Reports reviewed Radiology results interpreted by me: 05/03/17 04:28 Right foot x-ray: No acute fracture Chest x-ray: No acute fracture or pneumothorax Discharge - Discharge Clinical Impression: Auditory hallucinations, Alcohol abuse, Homicidal ideation Condition: Stable Disposition: PSYCH HOSP/UNIT
[2017-05-02 21:24] LABS: ALANINE AMINOTRANSFERASE 131 U/L (21-72); ALBUMIN 4.5 g/dL (3.5-5.0); ALKALINE PHOSPHATASE 120 U/L (38-126); ANION GAP 11 (5-19); ASPARTATE AMINO TRANSFERASE 144 U/L (17-59); BILIRUBIN,DIRECT 0.4 mg/dL (0.0-0.4); BILIRUBIN,TOTAL 0.6 mg/dL (0.2-1.3); BLOOD UREA NITROGEN 11 mg/dL (7-20); CALCIUM 9.1 mg/dL (8.4-10.2); CARBON DIOXIDE 26 mmol/L (22-30); CHLORIDE 106 mmol/L (98-107); CREATININE RESULT 0.82 mg/dL (0.52-1.25); GLUCOSE 98 mg/dL (75-110); POTASSIUM 4.1 mmol/L (3.6-5.0); SODIUM 143.2 mmol/L (137-145); TOTAL PROTEIN 7.5 g/dL (6.3-8.2)
[2017-05-02 21:30] LABS: URINE BARBITURATES SCREEN NEGATIVE; URINE METHADONE SCREEN NEGATIVE; URINE OPIATES LOW NEGATIVE; URINE PHENCYCLIDINE SCREEN NEGATIVE
--- NOTE | 2017-05-02 21:45 | RADIOLOGY REPORT (SQ) ---
EXAM DESCRIPTION: FOOT RIGHT COMPLETE COMPLETED DATE/TIME: 05/02/2017 9:33 pm REASON FOR STUDY: right foot pain COMPARISON: 03/07/2017 NUMBER OF VIEWS: Three views. TECHNIQUE: AP, lateral and oblique radiographic images acquired of the right foot. LIMITATIONS: None. FINDINGS: MINERALIZATION: Marked osteopenia. BONES: Healing fracture of the 1st proximal phalanx. Chronic hindfoot deformity. No acute fractures . JOINTS: No effusions. SOFT TISSUES: No soft tissue swelling. No foreign body. OTHER: No other significant finding. IMPRESSION: Chronic changes including healing fracture of the 1st proximal phalanx. No acute fractu res. Interval development of osteopenia. TECHNICAL DOCUMENTATION: JOB ID: [id number] [employer]- All Rights Reserved
[2017-05-02 21:55] LABS: ALCOHOL 330 mg/dL (NONE DETECTED)
[2017-05-02] MEDS ORDERED: DIAZEPAM 5 MG TABLET PO ONE (22:06)
--- NOTE | 2017-05-03 02:14 | RADIOLOGY REPORT (SQ) ---
EXAM DESCRIPTION: CHEST SINGLE VIEW COMPLETED DATE/TIME: 05/03/2017 1:29 am REASON FOR STUDY: chest wall pain COMPARISON: CT, 11/16/2006. EXAM PARAMETERS: NUMBER OF VIEWS: One view. TECHNIQUE: Single frontal radiographic view of the chest acquired. RADIATION DOSE: NA LIMITATIONS: None. FINDINGS: LUNGS AND PLEURA: Prominent interstitium, chronic. MEDIASTINUM AND HILAR STRUCTURES: No masses. Contour normal. HEART AND VASCULAR STRUCTURES: Heart normal in size. Normal vasculature. BONES: No acute findings. HARDWARE: None in the chest. OTHER: No other significant finding. IMPRESSION: No acute cardiopulmonary findings. TECHNICAL DOCUMENTATION: JOB ID: [id number]
[2017-05-03] MEDS ORDERED: GABAPENTIN 400 MG CAPSULE PO ONE (05:18)
--- NOTE | 2017-05-03 05:21 | ER Document Report ---
Doctor's Note Notes: 05/03/17 05:19 Patient of the nurse that he wanted to leave. Went to go talk to the patient. Patient says he is no longer homicidal. I sent him more than happy to keep him here to still allow him to speak with psychiatry. He says is always concern is that he feels he is going into alcohol withdrawal. He did see Dr. Flores who gave him 10 mg of Valium earlier. I informed him I be more than happy to give him a dose of gabapentin if he feels that this calms his nerves and will help with his alcohol withdrawal. Patient says he would very much appreciate that and is still willing to stay and see psychiatry. I have ordered the gabapentin. Patient does not have significant tremor. He otherwise looks well. He continues to be stable for psychiatric evaluation. Dictation of this chart was performed using voice recognition software; therefore, there may be some unintended grammatical errors.
[2017-05-03] MEDS ORDERED: LORAZEPAM 1 MG TABLET PO ONE (09:15)
--- NOTE | 2017-05-03 09:15 | ER Document Report ---
Doctor's Note Notes: 05/03/17 09:14 Patient is resting comfortably in bed. Patient is not tremulous. He is not tachycardic. Patient states he does feel anxious however would like something to help him relax. Patient be given a dose of oral Ativan.
--- NOTE | 2017-05-03 09:27 | EKG REPORT ---
SEVERITY:- ABNORMAL ECG - SINUS RHYTHM MULTIPLE VENTRICULAR PREMATURE COMPLEXES PROLONGED QT INTERVAL : Confirmed by: Polo Dickey 03-May-2017 09:26:56
--- NOTE | 2017-05-03 09:52 | ER Document Report ---
ED Psych Disorder / Suicide - General Information source: Patient, [facility] Records TRAVEL OUTSIDE OF THE [place] IN LAST 30 DAYS: No - HPI Onset: Just prior to arrival Onset was: Cannot confirm Suicide Risk Factors: Frightened friends/family, Lack of social support, Loss of rational thought, Male, Substance abuse Situational problems related to: Other - probs with brother; financial probs Normal mood: Yes - today Associated symptoms: Normal affect, Normal mood, Anxious, Auditory hallucinations - per patient, Irritable - las tnight, Labile - last night Similar symptoms previously: Yes - 04/29 Recently seen / treated by doctor: Yes - 04/29 <JOSAFAT SORIA - Last Filed: 05/03/17 09:47> <RUTH WALLER - Last Filed: 05/03/17 10:00> - General Chief Complaint: Psych Problem Stated Complaint: PSYCH EVAL Time Seen by Provider: 05/02/17 20:29 - HPI Notes: Patient is a 47 year old male who presented last night with c/o homicidal ideations towards his brother. Patient reported upon arrival that he was experiencing auditory command hallucinations and following their instructions to harm his brother. Patient reportedly went to the shower with a 4'4, but his brother was not there. Patient also acknowledged methamphetamine abuse and alcohol. Patient this morning states he was intoxicated last night and that the incident with a board and the shower was months ago. He states his brother lives in [facility] somewhere and he does not know where. Patient states he does not wish to harm him. Patient states he hears voices. He states this only began 2-3 years ago, with no prior history. Patient does report he has been doing drugs his entire life. Patient states he began with cocaine and marijuana and has now progressed to crystal meth. Patient states he has not abused meth since last week, but drinks alcohol daily. Patient rocio reports he lives alone and would like detox. Discussed with patient that substance abuse services in [place] are largely a voluntary process, which he states he understands. Patient states he would like to pursue detox via one of the mobile crisis providers, like he did a few years ago. Patient denies SI/HI. Patient is A&O. Mood is anxious with normal affect. Patient denies SI/HI. Patient endorses auditory command hallucinations, but denies any at this time. Patient does not appear to be responding to internal stimuli. Thought processes were organized. Conversational speech was WNL. Intellectual abilities were estimated within average range. Attention and focus were fair. Insight, judgment, and impulse control were poor. 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 Patient does not meet IVC criteria per [place] GS 122C. Patient denies suicidal and homicidal ideation. Patient is encouraged to pursue voluntary detox. Patient's described symptoms are more congruent with withdrawal symptoms, specifically given length of time, length of drug use and patient's age. I consulted with Dr. Vizcaino in regards to the care and management of this patient. (JOSAFAT SORIA) - Related Data Allergies/Adverse Reactions: bacitracin [From Neosporin] Allergy (Verified 12/20/12 01:16) bacitracin zinc [From Neosporin] Allergy (Verified 12/20/12 01:16) gramicidin D [From Neosporin] Allergy (Verified 12/20/12 01:16) neomycin sulfate [From Neosporin] Allergy (Verified 12/20/12 01:16) polymyxin B [From Neosporin] Allergy (Verified 12/20/12 01:16) polymyxin B sulfate [From Neosporin] Allergy (Verified 12/20/12 01:16) Home Medications: Current Home Medications No Home Medications 05/02/17 [History] Past Medical History - General Information source: Patient, [facility] Records - Social History Smoking Status: Current Every Day Smoker Chew tobacco use (# tins/day): No Frequency of alcohol use: Heavy Drug Abuse: Cocaine, Marijuana, Methamphetamine Lives with: Alone Family History: Reviewed & Not Pertinent Patient has suicidal ideation: No - denied today Patient has homicidal ideation: No - denied today - Past Medical History Cardiac Medical History: Reports: Hx Hypertension Renal/ Medical History: Denies: Hx Peritoneal Dialysis Past Surgical History: Reports: Hx Orthopedic Surgery - Immunizations Hx Diphtheria, Pertussis, Tetanus Vaccination: No <JOSAFAT SORIA - Last Filed: 05/03/17 09:47> - Vital signs Vitals: Temp Pulse Resp BP Pulse Ox 97.5 F 107 H 26 H 152/129 H 94 05/02/17 20:14 05/02/17 20:14 05/02/17 20:14 05/02/17 20:14 05/02/17 20:14 Course - Laboratory Result Diagrams: 05/02/17 20:45 05/02/17 20:45 <JOSAFAT SORIA - Last Filed: 05/03/17 09:47> - Laboratory Result Diagrams: 05/02/17 20:45 05/02/17 20:45 <RUTH WALLER - Last Filed: 05/03/17 10:00> - Vital Signs Vital signs: Temp Pulse Resp BP Pulse Ox 97.5 F 93 18 143/99 H 95 05/02/17 20:14 05/03/17 08:18 05/03/17 08:18 05/03/17 08:18 05/03/17 08:18 - Laboratory Laboratory results interpreted by me: 05/02/17 05/02/17 20:45 20:45 RBC 4.24 L MCV 101 H MCH 35.0 H AST 144 H ALT 131 H Salicylates < 1.0 L Acetaminophen < 10 L Serum Alcohol 330 H* Discharge <JOSAFAT SORIA - Last Filed: 05/03/17 09:47> <RUTH WALLER - Last Filed: 05/03/17 10:00> - Discharge Clinical Impression: Auditory hallucinations, Alcohol abuse, Homicidal ideation Condition: Stable Disposition: HOME, SELF-CARE Additional Instructions: Acute Alcohol Intoxication Your evaluation revealed very high levels of alcohol. You can from drinking a large amount of alcohol rapidly! Further, there's the risk of falls , traffic accidents, and fights. A high portion (about 50 percent) of the serious injuries seen in hospital emergency rooms are caused by alcohol. Alcohol overdosage is usually due to an underlying emotional or psychiatric problem. You may benefit from counselling. If "binge" drinking is an ongoing problem for you, or if you drink ANY AMOUNT of alcohol EVERY day, you most likely have a tendency to alcoholism. You should avoid alcohol totally. We can refer you for treatment. Persons with alcohol problems are often also prone to other addictions -- you should discuss any use of medications or drugs with the doctor. You should be watched at home for the next several hours by someone who has not been drinking. Get extra fluids for the next 24 hours. Call the doctor if there is repeated vomiting, increasing headache, decreasing level of alertness, or any other worsening. Please stop drinking and using drugs. Please consider substance abuse treatment. You have identified you would like to pursue detox. You have been provided a list of resources to assist you in doing so. Please return if your symptoms worsen. Referrals: [facility] Crisis Team [Provider Group] - 05/03/17 (Please call so they may assist you in locating a detox facility and or substance abuse treatment.)
[2017-05-03 10:42] VITALS: BP 154/84
== END 2017-05-03 10:49 | disposition home or self-care (01) ==
LOC: ER 19:46
DX: R44.0 Auditory hallucinations (principal); F10.10 Alcohol abuse, uncomplicated; F15.99 Other stimulant use, unspecified with unspecified stimulant-induced disorder; R45.850 Homicidal ideations; F17.200 Nicotine dependence, unspecified, uncomplicated; I10 Essential (primary) hypertension
CPT/HCPCS: 36415; 71010; 80053; 80307; 81001; 85025; 93005; 93010; 99285

== ENCOUNTER 2017-06-21 19:15 | Emergency (ER) | payer SELFPAY ==
[2017-06-21] MEDS ORDERED: NORMAL SALINE 1000 ML 1,000 ML IV PRN (19:37)
--- NOTE | 2017-06-21 20:13 | ER Document Report ---
ED Substance Abuse / Acc. OD - General Chief Complaint: ETOH Abuse Stated Complaint: ETOH Time Seen by Provider: 06/21/17 19:33 Notes: The patient is a 47-year-old male, past medical history chronic alcoholism, presents with several days of suicidal thoughts and heavy drinking. He has thoughts of hurting himself, but no plan. He is requesting help getting into [place] for detox. His last drink was 2 hours prior to arrival. He denies tremulousness, hallucinations, nausea, vomiting, chest pain, shortness of breath or abdominal pain. TRAVEL OUTSIDE OF THE U.S. IN LAST 30 DAYS: No - Related Data Allergies/Adverse Reactions: bacitracin [From Neosporin] Allergy (Verified 12/20/12 01:16) bacitracin zinc [From Neosporin] Allergy (Verified 12/20/12 01:16) gramicidin D [From Neosporin] Allergy (Verified 12/20/12 01:16) neomycin sulfate [From Neosporin] Allergy (Verified 12/20/12 01:16) polymyxin B [From Neosporin] Allergy (Verified 12/20/12 01:16) polymyxin B sulfate [From Neosporin] Allergy (Verified 12/20/12 01:16) Past Medical History - General Information source: Patient - Social History Smoking Status: Current Every Day Smoker Frequency of alcohol use: Heavy Family History: Reviewed & Not Pertinent Patient has suicidal ideation: No Patient has homicidal ideation: No - Past Medical History Cardiac Medical History: Reports: Hx Hypertension Renal/ Medical History: Denies: Hx Peritoneal Dialysis Past Surgical History: Reports: Hx Orthopedic Surgery - Immunizations Hx Diphtheria, Pertussis, Tetanus Vaccination: No Review of Systems - Review of Systems Notes: REVIEW OF SYSTEMS: CONSTITUTIONAL: -fevers, -chills EENT: -eye pain, -difficulty swallowing, -nasal congestion CARDIOVASCULAR:-chest pain, -syncope. RESPIRATORY: -cough, -SOB GASTROINTESTINAL: -abdominal pain, - nausea, -vomiting, -diarrhea GENITOURINARY: -dysuria, -hematuria MUSCULOSKELETAL: -back pain, -neck pain SKIN: -rash or skin lesions. HEMATOLOGIC: -easy bruising or bleeding. LYMPHATIC: -swollen, enlarged glands. NEUROLOGICAL: -altered mental status or loss of consciousness, -headache, - neurologic symptoms PSYCHIATRIC: -anxiety, +depression, +SI, +heavy ETOH use ALL OTHER SYSTEMS REVIEWED AND NEGATIVE. Physical Exam - Vital signs Vitals: Resp Pulse Ox 22 H 96 06/21/17 20:03 06/21/17 20:03 - Notes Notes: PHYSICAL EXAMINATION: GENERAL: Dishevelled. No acute distress. HEAD: Atraumatic, normocephalic. EYES: Pupils equal round and reactive to light, extraocular movements intact, sclera anicteric, conjunctiva are normal. ENT: nares patent, oropharynx clear without exudates. Moist mucous membranes. NECK: Normal range of motion, supple without lymphadenopathy LUNGS: Breath sounds clear to auscultation bilaterally and equal. No wheezes rales or rhonchi. HEART: Tachycardia ABDOMEN: Soft, nontender, normoactive bowel sounds. No guarding, no rebound. No masses appreciated. EXTREMITIES: Normal range of motion, no pitting or edema. No cyanosis. NEUROLOGICAL: Cranial nerves grossly intact. Normal speech, normal gait. Normal sensory and motor exams. PSYCH: Normal mood, normal affect. SKIN: Warm, Dry, normal turgor, no rashes or lesions noted. Course - Re-evaluation Re-evalutation: Patient with several months of suicidal ideation, but no specific plan. He is a chronic alcoholic, but no signs of withdrawal at this time. Pt tachycardic on arrival, which may be related to his recent crack use. This resolved while at rest. His ETOH level is 292. He said that he will stay overnight to speak to mental health in the morning. Will monitor for withdrawal symptoms. - Vital Signs Vital signs: Temp Pulse Resp BP Pulse Ox 18 174/113 H 94 06/21/17 20:31 06/21/17 20:31 06/21/17 20:31 - Laboratory Result Diagrams: 06/21/17 20:15 06/21/17 20:15 Laboratory results interpreted by me: 06/21/17 06/21/17 20:15 20:15 MCV 100 H MCH 34.1 H Seg Neutrophils % 38.3 L Sodium 145.3 H AST 82 H Salicylates < 1.0 L Acetaminophen < 10 L - EKG Interpretation by Mi EKG shows normal: Sinus rhythm, [place], Intervals Rate: Tachycardia Rhythm: PVC's When compared to previous EKG there are: No significant change Discharge - Discharge Clinical Impression: ETOH abuse, Suicidal ideation, Cocaine abuse Condition: Stable Disposition: PSYCH HOSP/UNIT
[2017-06-21 20:18] LABS: APPEARANCE,URINE CLEAR; BILIRUBIN,URINE NEGATIVE (NEGATIVE); GLUCOSE, URINE NEGATIVE (NEGATIVE); KETONES,URINE NEGATIVE (NEGATIVE); LEUKOCYTE ESTERASE,URINE NEGATIVE (NEGATIVE); NITRITE,URINE NEGATIVE (NEGATIVE); PROTEIN,URINE NEGATIVE (NEGATIVE); URINE SPECIFIC GRAVITY 1.003; UROBILINOGEN,URINE NEGATIVE mg/dL (<2.0)
[2017-06-21 20:26] LABS: ABSOLUTE EOSINOPHILS # (AUTO) 0.1 10^3/uL (0.0-0.6); ABSOLUTE LYMPHOCYTES (AUTO) 2.3 10^3/uL (0.5-4.7); ABSOLUTE MONOCYTES (AUTO) 0.6 10^3/uL (0.1-1.4); ABSOLUTE NEUT (AUTO) 1.9 10^3/uL (1.7-8.2); BASOPHILS % (AUTO) 0.9 % (0-2); HEMOGLOBIN 16.7 g/dL (13.5-17.0); HGB HCT DIFFERENCE 1.1; LYMPHOCYTES % (AUTO) 44.9 % (13-45); MEAN CORPUSCULAR HEMOGLOBIN 34.1 pg (27.0-33.4); MEAN CORPUSCULAR VOLUME 100 fl (80-97); MONOCYTES % (AUTO) 12.9 % (3-13); RED CELL DISTRIBUTION WIDTH 13.6 % (11.5-14.0); SEGMENTED NEUTROPHILS % (AUTO) 38.3 % (42-78)
[2017-06-21 20:29] LABS: URINE BARBITURATES SCREEN NEGATIVE; URINE METHADONE SCREEN NEGATIVE; URINE OPIATES LOW NEGATIVE; URINE PHENCYCLIDINE SCREEN NEGATIVE
[2017-06-21 20:43] LABS: ALANINE AMINOTRANSFERASE 62 U/L (21-72); ALBUMIN 4.7 g/dL (3.5-5.0); ALKALINE PHOSPHATASE 120 U/L (38-126); ANION GAP 17 (5-19); ASPARTATE AMINO TRANSFERASE 82 U/L (17-59); BILIRUBIN,DIRECT 0.4 mg/dL (0.0-0.4); BILIRUBIN,TOTAL 0.5 mg/dL (0.2-1.3); BLOOD UREA NITROGEN 7 mg/dL (7-20); CALCIUM 9.4 mg/dL (8.4-10.2); CARBON DIOXIDE 25 mmol/L (22-30); CHLORIDE 103 mmol/L (98-107); CREATININE RESULT 0.82 mg/dL (0.52-1.25); GLUCOSE 100 mg/dL (75-110); POTASSIUM 4.3 mmol/L (3.6-5.0); SODIUM 145.3 mmol/L (137-145); TOTAL PROTEIN 8.1 g/dL (6.3-8.2)
[2017-06-21 20:51] LABS: ALCOHOL 292 mg/dL (NONE DETECTED)
[2017-06-21] MEDS ORDERED: DIPHENHYDRAMINE HCL 50 MG CAPSULE PO ONE (21:45)
--- NOTE | 2017-06-22 08:08 | EKG REPORT ---
SEVERITY:- ABNORMAL ECG - SINUS TACHYCARDIA MULTIPLE VENTRICULAR PREMATURE COMPLEXES BORDERLINE LEFT AXIS DEVIATION BORDERLINE PROLONGED QT INTERVAL : Confirmed by: Alvin Gutierres MD 22-Jun-2017 08:06:59
--- NOTE | 2017-06-22 11:19 | ER Document Report ---
ED Psych Disorder / Suicide - General TRAVEL OUTSIDE OF THE [place] IN LAST 30 DAYS: No <ANIVAL CHILDS - Last Filed: 06/22/17 11:10> <DAYO IRVIN - Last Filed: 06/22/17 11:28> - General Chief Complaint: ETOH Abuse Stated Complaint: ETOH Time Seen by Provider: 06/21/17 19:33 - HPI Notes: The patient is a 47-year-old male, past medical history chronic alcoholism, presents with several days of suicidal thoughts and heavy drinking. He has thoughts of hurting himself, but no plan. He is requesting help getting into [facility] for detox. His last drink was 2 hours prior to arrival. Patient disclosed that he is been drinking too much alcohol. He continued disclosed that he does have high blood pressure in the last 3 days he is been feeling bad. When asked to clarify patient states "it might be from drinking too much." Patient was able to achieve sobriety for 2 years in 1995; however, states "it has been a long time since I been able to go even just a couple months" without alcohol. Patient denies thoughts of wanting to harm himself or others. He continued disclosed that he does suffer from hallucinations "when I use crystal meth... But only when I am using it.... It has been a while since I used it last time." Patient is alert and orientated to person place time and circumstance. Mood is euthymic with congruent affect. Patient denies suicidal homicidal ideation. Delusions are absent and behaviors congruent with intact reality based presentation i.e. organized, linear thinking. Eye contact was well-maintained. Intellectual abilities appear to be within the average range. Conversational speech was within normal rate tone and prosody. Attention and concentration were good. Insight, judgment, impulse control are poor due to alcohol abuse. 303.90 (F10.20) alcohol use disorder, severe Impression\\plan: Patient is considered psychiatrically clear. Patient does not meet IVC criteria per [place] GS 120 2C. Patient denies suicidal and homicidal ideation. Delusions are absent and behaviors congruent with intact reality based presentation i.e. organized, linear thinking. Patient has long history of chronic alcohol abuse. Patient is provided resource packet for substance abuse that includes both inpatient and outpatient resources. Patient is recommended to follow-up with outpatient services for his substance abuse treatment. Dr. Vizcaino was consulted on the care and management of this patient ; attending physician in agreement with recommendations and disposition. (ANIVAL CHILDS) - Related Data Allergies/Adverse Reactions: bacitracin [From Neosporin] Allergy (Verified 06/22/17 02:41) bacitracin zinc [From Neosporin] Allergy (Verified 06/22/17 02:41) gramicidin D [From Neosporin] Allergy (Verified 06/22/17 02:41) neomycin sulfate [From Neosporin] Allergy (Verified 06/22/17 02:41) polymyxin B [From Neosporin] Allergy (Verified 06/22/17 02:41) polymyxin B sulfate [From Neosporin] Allergy (Verified 06/22/17 02:41) Past Medical History - General Information source: Patient - Social History Smoking Status: Current Every Day Smoker Frequency of alcohol use: Heavy Family History: Reviewed & Not Pertinent Patient has suicidal ideation: No Patient has homicidal ideation: No - Past Medical History Cardiac Medical History: Reports: Hx Hypertension Renal/ Medical History: Denies: Hx Peritoneal Dialysis Past Surgical History: Reports: Hx Orthopedic Surgery - Immunizations Hx Diphtheria, Pertussis, Tetanus Vaccination: No <ANIVAL CHILDS - Last Filed: 06/22/17 11:10> - Vital signs Vitals: Resp Pulse Ox 22 H 96 06/21/17 20:03 06/21/17 20:03 Course - Laboratory Result Diagrams: 06/21/17 20:15 06/21/17 20:15 <ANIVAL CHILDS - Last Filed: 06/22/17 11:10> - Laboratory Result Diagrams: 06/21/17 20:15 06/21/17 20:15 <DAYO IRVIN - Last Filed: 06/22/17 11:28> - Re-evaluation Re-evalutation: 06/22/17 11:27 Patient does not have any signs of acute alcohol withdrawals no signs of homicidal suicidal ideation at this time. Patient looks to be stable for discharge home agree with mental health plan and assessment. (DAYO IRVIN) - Vital Signs Vital signs: Temp Pulse Resp BP Pulse Ox 85 18 155/85 H 98 06/22/17 06:37 06/22/17 06:37 06/22/17 06:37 06/22/17 06:37 - Laboratory Laboratory results interpreted by me: 06/21/17 06/21/17 20:15 20:15 MCV 100 H MCH 34.1 H Seg Neutrophils % 38.3 L Sodium 145.3 H AST 82 H Salicylates < 1.0 L Acetaminophen < 10 L Discharge <ANIVAL CHILDS - Last Filed: 06/22/17 11:10> <BRANDEEDAYO MIRANDA - Last Filed: 06/22/17 11:28> - Discharge Clinical Impression: ETOH abuse, Suicidal ideation, Cocaine abuse Condition: Stable Disposition: HOME, SELF-CARE Additional Instructions: ACUTE ALCOHOL INTOXICATION and ALCOHOL ABUSE: Your evaluation revealed very high levels of alcohol. You can from drinking a large amount of alcohol rapidly! Further, there's the risk of falls , traffic accidents, and fights. A high portion (about 50 percent) of the serious injuries seen in hospital emergency rooms are caused by alcohol. Alcohol overdosage is usually due to an underlying emotional or psychiatric problem. You may benefit from counselling. If "binge" drinking is an ongoing problem for you, or if you drink ANY AMOUNT of alcohol EVERY day, you most likely have a tendency to alcoholism. You should avoid alcohol totally. We can refer you for treatment. Persons with alcohol problems are often also prone to other addictions -- you should discuss any use of medications or drugs with the doctor. You should be watched at home for the next several hours by someone who has not been drinking. Get extra fluids for the next 24 hours. Call the doctor if there is repeated vomiting, increasing headache, decreasing level of alertness, or any other worsening. CHRONIC ALCOHOLISM and ALCOHOL ABUSE: Your evaluation reveals evidence of chronic alcoholism, an addiction to alcohol. The tendency to alcoholism may be inherited. Chronic use of alcohol weakens muscles, causes fatty deposits in the liver , damages the stomach, makes you more prone to infections, and can cause defects in unborn children. In the long run, brain atrophy and cirrhosis of the liver result. You are also at greater risk for certain types of cancer, such as cancer of the mouth, throat, stomach, and liver. Counselling services are available to help you. In-hospital treatment programs often help. Support groups such as Alcoholics Anonymous can be very useful in beating this addiction. Your physician can make a referral for you. As alcoholics often are prone to other addictions, you should discuss your use of any other medications with the doctor. FOLLOW-UP CARE: Please follow-[facility] with [facility] upon discharge for your outpatient substance abuse treatment. You have also been provided a packet of additional resources if you choose to go inpatient for substance abuse treatment. If you experience worsening or a significant change in your symptoms, notify the physician immediately or return to the Emergency Department at any time for re- evaluation. Referrals: [facility] [Outside] - 06/22/17
[2017-06-22 11:41] VITALS: BP 155/105
== END 2017-06-22 11:36 | disposition home or self-care (01) ==
LOC: ER 19:15
DX: R45.851 Suicidal ideations (principal); F10.10 Alcohol abuse, uncomplicated; F14.10 Cocaine abuse, uncomplicated; I10 Essential (primary) hypertension; F17.200 Nicotine dependence, unspecified, uncomplicated
CPT/HCPCS: 36415; 80053; 80307; 81001; 85025; 93005; 93010; 99285

== ENCOUNTER 2017-08-04 11:28 | Emergency (ER) | payer SELFPAY ==
--- NOTE | 2017-08-04 12:30 | ER Document Report ---
ED Psych Disorder / Suicide <SAMMILUCIA - Last Filed: 08/04/17 14:44> - General TRAVEL OUTSIDE OF THE U.S. IN LAST 30 DAYS: No <KALIN MCLAUGHLIN - Last Filed: 08/04/17 18:53> - General Chief Complaint: Psych Problem Stated Complaint: PSYCH EVAL Time Seen by Provider: 08/04/17 11:31 Notes: Patient says that he is depressed and alcoholic and is hearing voices telling him to harm himself. He has been feeling this way for "a while". He drinks alcohol on a daily basis. Denies suicidal thoughts other than when the voices are telling him to harm himself. Patient has a long history of problems that has been seen in this emergency department on several previous occasions. In the past couple of years, patient has been here on 5 previous occasions for alcohol problems, detox, psych evaluation. Patient says he just got out of [facility] about a week ago. He was sent from there to a homeless fpc in [place] where he stayed for a couple of days and then made it back to [place] about 3 or 4 days ago. Patient says he normally takes Haldol and some other medication which he cannot recall. Patient denies any chest pains, difficulty breathing or shortness of breath, nausea or vomiting or abdominal pains, fever, etc. Has no history of any abdominal surgeries. (KALIN MCLAUGHLIN) - Related Data Allergies/Adverse Reactions: bacitracin [From Neosporin] Allergy (Verified 06/22/17 02:41) bacitracin zinc [From Neosporin] Allergy (Verified 06/22/17 02:41) gramicidin D [From Neosporin] Allergy (Verified 06/22/17 02:41) neomycin sulfate [From Neosporin] Allergy (Verified 06/22/17 02:41) polymyxin B [From Neosporin] Allergy (Verified 06/22/17 02:41) polymyxin B sulfate [From Neosporin] Allergy (Verified 06/22/17 02:41) Past Medical History - Social History Smoking Status: Current Every Day Smoker Chew tobacco use (# tins/day): No Frequency of alcohol use: daily Drug Abuse: None Family History: Reviewed & Not Pertinent Patient has suicidal ideation: Yes Patient has homicidal ideation: No - Past Medical History Cardiac Medical History: Reports: Hx Hypertension Denies: Hx Coronary Artery Disease Psychiatric Medical History: Reports: Hx Depression Past Surgical History: Reports: Hx Orthopedic Surgery - Immunizations Hx Diphtheria, Pertussis, Tetanus Vaccination: No <KALIN MCLAUGHLIN - Last Filed: 08/04/17 18:53> Review of Systems <LUCIA CHAPA - Last Filed: 08/04/17 14:44> <KALIN MCLAUGHLIN - Last Filed: 08/04/17 18:53> - Review of Systems Notes: REVIEW OF SYSTEMS: CONSTITUTIONAL : Denies fever. EENT: Denies eye, ear, nose or mouth or throat pain or other symptoms. CARDIOVASCULAR: Denies chest pain. RESPIRATORY: Denies cough, chest congestion, or shortness of breath. GASTROINTESTINAL: Denies abdominal pain or nausea, vomiting, or diarrhea. GENITOURINARY: Denies difficulty or painful urinating, urinary frequency, blood in urine. MUSCULOSKELETAL: Denies back or neck pain. Denies joint pain or swelling. SKIN: Denies rash or skin lesions. Psychiatric: See HPI. NEUROLOGICAL: Denies LOC or altered mental status. Denies headache. Denies sensory loss or motor deficits. ALL OTHER SYSTEMS REVIEWED AND NEGATIVE. (LISSETTEKALIN) Physical Exam <LUCIA CHAPA - Last Filed: 08/04/17 14:44> - Vital signs Interpretation: Hypertensive <KALIN MCLAUGHLIN - Last Filed: 08/04/17 18:53> - Vital signs Vitals: Temp Pulse Resp BP Pulse Ox 97.2 F 55 L 16 175/126 H 98 08/04/17 11:56 08/04/17 11:56 08/04/17 11:56 08/04/17 11:56 08/04/17 11:56 - Notes Notes: PHYSICAL EXAMINATION: GENERAL: Well-appearing, in no acute distress. Can ambulate although he appears to be slightly unsteady on his feet. His speech sounds slurred. HEAD: Atraumatic, normocephalic. EYES: Pupils equal round and reactive to light, extraocular movements intact. ENT: oropharynx clear without exudates. Moist mucous membranes. NECK: Normal range of motion, supple. LUNGS: Breath sounds clear and equal bilaterally. Few scattered rhonchi bilaterally. HEART: Regular rate and rhythm without murmurs. ABDOMEN: Soft, nontender. No guarding or rebound. BACK: No tenderness throughout entire back. EXTREMITIES: Normal range of motion without pain. NEUROLOGICAL: Slightly slurred speech, normal gait except for being slightly unsteady on his feet, likely due to alcohol on board. Normal sensory, motor, and reflex exams. Awake, alert, and oriented x3. PSYCH: Normal mood, normal affect. Not psychotic. May be somewhat depressed. SKIN: Warm, dry, no rashes. (KALIN MCLAUGHLIN) Course - Laboratory Result Diagrams: 08/04/17 13:10 08/04/17 13:10 <LUCIA CHAPA - Last Filed: 08/04/17 14:44> - Laboratory Result Diagrams: 08/04/17 13:10 08/04/17 13:10 <KALIN MCLAUGHLIN - Last Filed: 08/04/17 18:53> - Re-evaluation Re-evalutation: 08/04/17 12:36 Patient is here voluntarily. We do not have mental health personnel available for consult this afternoon so patient will be kept in the emergency department overnight and evaluated tomorrow morning. Chana Mclaughlin MD 08/04/17 14:20 Patient has been evaluated by mental health and they feel patient does not need any further inpatient care. However, the patient's blood alcohol is 274 which means from the time it was drawn at approximately 1300, patient will not be down to not legally intoxicated about 11 PM tonight. For that reason, I have told him that I would keep him overnight to be discharged tomorrow morning. Chana Mclaughlin MD (KALIN MCLAUGHLIN) - Vital Signs Vital signs: Temp Pulse Resp BP Pulse Ox 97.2 F 101 H 16 149/96 H 97 08/04/17 11:56 08/04/17 16:24 08/04/17 16:24 08/04/17 16:24 08/04/17 16:24 - Laboratory Laboratory results interpreted by me: 08/04/17 08/04/17 13:10 13:10 MCV 100 H MCH 34.4 H Monocytes % 16.0 H Sodium 148.0 H Chloride 108 H AST 83 H ALT 167 H Salicylates < 1.0 L Acetaminophen < 10 L Discharge <LUCIA CHAPA - Last Filed: 08/04/17 14:44> <KALIN MCLAUGHLIN - Last Filed: 08/04/17 18:53> - Discharge Clinical Impression: Chronic alcoholism, Alcohol intoxication, Depression Condition: Stable Disposition: HOME, SELF-CARE Additional Instructions: CHRONIC ALCOHOLISM and ALCOHOL ABUSE: Your evaluation reveals evidence of chronic alcoholism, an addiction to alcohol. The tendency to alcoholism may be inherited. Chronic use of alcohol weakens muscles, causes fatty deposits in the liver , damages the stomach, makes you more prone to infections, and can cause defects in unborn children. In the long run, brain atrophy and cirrhosis of the liver result. You are also at greater risk for certain types of cancer, such as cancer of the mouth, throat, stomach, and liver. Counselling services are available to help you. In-hospital treatment programs often help. Support groups such as Alcoholics Anonymous can be very useful in beating this addiction. Your physician can make a referral for you. As alcoholics often are prone to other addictions, you should discuss your use of any other medications with the doctor. ALCOHOL WITHDRAWAL: Your symptoms are caused by alcohol withdrawal. After a period of frequent drinking, the brain and body are changed by the alcohol. When you quit or reduce your drinking, the nervous system becomes unstable. Withdrawal symptoms can start a few hours after your last drink, but sometimes don't begin until a couple of days later. Symptoms can include shakiness, sweating, insomnia, nausea , vomiting, fearfulness, hallucinations, and seizures. In addition to the acute effects of alcohol withdrawal, we often have to deal with the medical effects of alcoholism. These problems often include dehydration, stomach irritation, intestinal bleeding, low blood sugar, liver disease, and pancreas inflammation. Treatment for alcohol withdrawal includes mild sedatives, vitamins, and fluids. You need to be with someone who can help if symptoms become severe. Many patients can withdraw at home. Admission to the hospital or a detox facility may be necessary if withdrawal symptoms are severe and uncontrollable. Abstaining from alcohol is the only effective long-term treatment. If you start drinking again, you will not be able to control yourself after the first drink. Treatment programs are available. In addition, many alcoholics benefit from Alcoholics Anonymous or other support groups available through your counselor or nondenominational level vial marker. AL-ANON and ALA-TEEN are support groups for friends and family members of an alcoholic. Go to the emergency room if you develop persistent vomiting, severe abdominal pain, fever, shortness of breath, hallucinations, uncontrollable tremors, or seizures. FOLLOW-UP CARE: You should follow up with one of the mobile crisis teams for voluntary inpatient detox. A resource list with these numbers will be provided to you upon discharge with your discharge documentation. If you experience worsening or a significant change in your symptoms, notify the physician immediately or return to the Emergency Department at any time for re-evaluation. Referrals: [facility] [Outside] - 08/05/17 9:00 am
[2017-08-04 12:44] LABS: APPEARANCE,URINE CLEAR; BILIRUBIN,URINE NEGATIVE (NEGATIVE); GLUCOSE, URINE NEGATIVE (NEGATIVE); KETONES,URINE NEGATIVE (NEGATIVE); LEUKOCYTE ESTERASE,URINE NEGATIVE (NEGATIVE); NITRITE,URINE NEGATIVE (NEGATIVE); PROTEIN,URINE NEGATIVE (NEGATIVE); URINE SPECIFIC GRAVITY 1.002; UROBILINOGEN,URINE NEGATIVE mg/dL (<2.0)
[2017-08-04 13:00] LABS: URINE BARBITURATES SCREEN NEGATIVE; URINE METHADONE SCREEN NEGATIVE; URINE OPIATES LOW NEGATIVE; URINE PHENCYCLIDINE SCREEN NEGATIVE
[2017-08-04 13:33] LABS: ABSOLUTE EOSINOPHILS # (AUTO) 0.2 10^3/uL (0.0-0.6); ABSOLUTE LYMPHOCYTES (AUTO) 1.8 10^3/uL (0.5-4.7); ABSOLUTE NEUT (AUTO) 3.1 10^3/uL (1.7-8.2); BASOPHILS % (AUTO) 0.6 % (0-2); HEMATOCRIT 47.2 % (37.9-51.0); HEMOGLOBIN 16.2 g/dL (13.5-17.0); HGB HCT DIFFERENCE 1.4; LYMPHOCYTES % (AUTO) 29.6 % (13-45); MEAN CORPUSCULAR HEMOGLOBIN 34.4 pg (27.0-33.4); MEAN CORPUSCULAR HGB CONC 34.3 g/dL (32.0-36.0); MEAN CORPUSCULAR VOLUME 100 fl (80-97); RED BLOOD COUNT 4.72 10^6/uL (4.35-5.55); RED CELL DISTRIBUTION WIDTH 13.6 % (11.5-14.0); SEGMENTED NEUTROPHILS % (AUTO) 49.8 % (42-78); WHITE BLOOD COUNT 6.2 10^3/uL (4.0-10.5)
[2017-08-04 13:55] LABS: ALANINE AMINOTRANSFERASE 167 U/L (21-72); ALBUMIN 4.2 g/dL (3.5-5.0); ALCOHOL 274 mg/dL (NONE DETECTED); ALKALINE PHOSPHATASE 96 U/L (38-126); ANION GAP 16 (5-19); ASPARTATE AMINO TRANSFERASE 83 U/L (17-59); BILIRUBIN,DIRECT 0.3 mg/dL (0.0-0.4); BILIRUBIN,TOTAL 0.6 mg/dL (0.2-1.3); BLOOD UREA NITROGEN 8 mg/dL (7-20); CALCIUM 9.3 mg/dL (8.4-10.2); CARBON DIOXIDE 24 mmol/L (22-30); CHLORIDE 108 mmol/L (98-107); CREATININE RESULT 0.75 mg/dL (0.52-1.25); GLUCOSE 106 mg/dL (75-110)
--- NOTE | 2017-08-04 14:44 | PSYCHOLOGICAL NOTE ---
Psych Note - Psych Note Psych Note: Patient is a 47 year old male who presented to the ED today for depression, ETOH intoxication, and hearing voices telling him to harm self. Patient denied current SI and hearing voices to this clinician. Patient admitted to drinking two forty ounce beers of Old [place] today. Serum Alcohol Level was 274 upon arrival to ED. He stated this amount if not more is typical daily usage for the past 2-3 years. He stated he was at [facility] a week ago, they kept him for a couple night, and from there he went to a homeless fpc in [place]. Patient said he did not want to be there and his home is here in [place] so he made his way back. He at first said he has a home here in [place]. Finally with much questioning patient identified he lives in a mobile home that has no running water or electricity. When confronted about how the place in [place] was at least warm and provided meals, as well as a recovery place likely patient stated "I am not going back there." Patient was seen last by the [facility] behavioral health team on 05/03/17 where it was felt he was likely experiencing withdrawal and recommended to seek voluntary inpatient detox. When asked if he followed through with recommendation from the 05/03/17 visit he said "yes here in [place], " and was unable to provide a name. He was made aware there isn't a detox facility in [place]. He reported previous SA treatment "years ago" at [facility]. Patient was sleeping at onset of evaluation. It required saying his name loudly a number of times and gently shaking his leg before he woke up. He was oriented to person, place, time and situation. Mood was irritable with congruent affect AEB when discussing his living conditions and having been at homeless fpc/ recovery place where he could at least gets his basic needs met and possibly get involved in treatment. He denied current SI/HI. He denied hearing voices at time of evaluation and did not appear to be responding to internal stimuli AEB answering questions appropriately when addressed and staying on topic. Thought processes were linear. Conversational speech was WNL for rate, tone and prosody. Intellectual abilities are estimated to be average. Insight, judgment and impulse control were impaired due to Serum Alcohol level of 274. Diagnosis: 303.90 (F10.20) Alcohol Use Disorder, Severe Impression/Plan: Patient is psychiatrically cleared however under the influence of alcohol. He does not meet [place] 122[place] IVC criteria. He denied SI/HI and no observed psychosis. He was at a homeless fpc/recovery program in [place] and chose to leave to come to [place] to a mobile home that has no running water or electricity. He did not follow up with voluntary inpatient detox as was suggested from 05/03/17 ED visit. Consulted with Dr. Vizcaino regarding the management and care of patient. ED Physician in agreement with recommendation with the caveat that he will be at legal alcohol limit at [id number] and thus discharge will take place tomorrow morning.
--- NOTE | 2017-08-04 15:44 | EKG REPORT ---
SEVERITY:- NORMAL ECG - SINUS RHYTHM : Confirmed by: Luzma Davey MD 04-Aug-2017 15:43:55
[2017-08-04] MEDS: HYDROXYZINE PAMOATE 50 MG CAPSULE PO PRN (16:31)
--- NOTE | 2017-08-04 20:07 | ER Document Report ---
Doctor's Note Notes: 08/04/17 20:06 Sign out received from Dr. Castrejon, patient came into the emergency department voluntarily, complaining of suicidal ideation and homelessness. Patient was intoxicated on arrival, is likely to be sober around 11 PM however is still homeless. Patient was assessed by mental health team and they feel he is not a danger to himself or others. Does not meet IVC criteria. Patient will be continued to be monitored overnight until sober and discharged in the morning with resources for homeless shelters.
[2017-08-05] MEDS: HYDROXYZINE PAMOATE 50 MG CAPSULE PO PRN ×2 (02:17→09:15)
[2017-08-05] MEDS ORDERED: NICOTINE 14 MG/24 HR PATCH.TD24 TD ONE (10:01)
--- NOTE | 2017-08-05 10:02 | ER Document Report ---
Doctor's Note Notes: 08/05/17 09:59 This is a 47-year-old alcoholic. States that he is recently lost his job due to an injury. Could not pay his bills. Had his electricity turned off. Does not have a place to stay. Has been drinking 3 or 4, 40 ounce malt liquors a day. Feeling all right today. States that he would really like a cigarette or some nicotine. He asked whether going to the [facility] in [place] would be an option to help him detox and get back on track. Denies any suicidal ideation today. Just feels like he is not a man because he lost his job. Had a long discussion with him that whether or not he has a job, is strong, physically fit or anything else does not make him a man. Expressed to him my sincere belief that he has what it takes to "be a man" and that we would like to provide him every opportunity to get back on his feet. Patient had a smile on his face and seemed optimistic about his recovery. We will continue to follow today. Will order nicotine patch.
[2017-08-05 10:20] VITALS: BP 134/78
== END 2017-08-05 12:06 | disposition home or self-care (01) ==
LOC: ER 11:28
DX: F10.229 Alcohol dependence with intoxication, unspecified (principal); F32.9 Major depressive disorder, single episode, unspecified; F17.200 Nicotine dependence, unspecified, uncomplicated; I10 Essential (primary) hypertension; Y90.8 Blood alcohol level of 240 mg/100 ml or more
CPT/HCPCS: 36415; 80053; 80307; 81001; 85025; 93005; 93010; 99285

== ENCOUNTER 2017-08-19 08:20 | Emergency (ER) | payer SELFPAY ==
[2017-08-19 09:06] LABS: APPEARANCE,URINE SLIGHTLY-CLOUDY; BILIRUBIN,URINE NEGATIVE (NEGATIVE); GLUCOSE, URINE NEGATIVE (NEGATIVE); KETONES,URINE NEGATIVE (NEGATIVE); LEUKOCYTE ESTERASE,URINE NEGATIVE (NEGATIVE); NITRITE,URINE NEGATIVE (NEGATIVE); PROTEIN,URINE NEGATIVE (NEGATIVE); URINE SPECIFIC GRAVITY 1.012
[2017-08-19 09:16] LABS: ABSOLUTE EOSINOPHILS # (AUTO) 0.2 10^3/uL (0.0-0.6); ABSOLUTE LYMPHOCYTES (AUTO) 1.5 10^3/uL (0.5-4.7); ABSOLUTE MONOCYTES (AUTO) 0.5 10^3/uL (0.1-1.4); ABSOLUTE NEUT (AUTO) 3.5 10^3/uL (1.7-8.2); BASOPHILS % (AUTO) 0.3 % (0-2); EOSINOPHILS % (AUTO) 3.1 % (0-6); HEMATOCRIT 44.3 % (37.9-51.0); HEMOGLOBIN 15.1 g/dL (13.5-17.0); LYMPHOCYTES % (AUTO) 25.8 % (13-45); MEAN CORPUSCULAR HEMOGLOBIN 34.2 pg (27.0-33.4); MEAN CORPUSCULAR HGB CONC 34.2 g/dL (32.0-36.0); MEAN CORPUSCULAR VOLUME 100 fl (80-97); MONOCYTES % (AUTO) 9.2 % (3-13); RED BLOOD COUNT 4.42 10^6/uL (4.35-5.55); RED CELL DISTRIBUTION WIDTH 13.7 % (11.5-14.0); SEGMENTED NEUTROPHILS % (AUTO) 61.6 % (42-78); WHITE BLOOD COUNT 5.7 10^3/uL (4.0-10.5)
[2017-08-19 09:23] LABS: URINE BARBITURATES SCREEN NEGATIVE; URINE METHADONE SCREEN NEGATIVE; URINE OPIATES LOW NEGATIVE; URINE PHENCYCLIDINE SCREEN NEGATIVE
[2017-08-19 09:41] LABS: ALANINE AMINOTRANSFERASE 102 U/L (21-72); ALBUMIN 4.4 g/dL (3.5-5.0); ALCOHOL 273 mg/dL (NONE DETECTED); ALKALINE PHOSPHATASE 102 U/L (38-126); ANION GAP 13 (5-19); ASPARTATE AMINO TRANSFERASE 115 U/L (17-59); BILIRUBIN,DIRECT 0.4 mg/dL (0.0-0.4); BILIRUBIN,TOTAL 0.7 mg/dL (0.2-1.3); BLOOD UREA NITROGEN 9 mg/dL (7-20); CALCIUM 9.3 mg/dL (8.4-10.2); CARBON DIOXIDE 27 mmol/L (22-30); CHLORIDE 99 mmol/L (98-107); CREATININE RESULT 0.75 mg/dL (0.52-1.25); GLUCOSE 110 mg/dL (75-110); POTASSIUM 4.3 mmol/L (3.6-5.0); SODIUM 139.3 mmol/L (137-145); TOTAL PROTEIN 7.7 g/dL (6.3-8.2)
[2017-08-19] MEDS ORDERED: HALOPERIDOL LACTATE INJ 5 MG/1 ML VIAL IM ONE (09:53)
[2017-08-19] MEDS ORDERED: NORMAL SALINE 1000 ML 1,000 ML IV PRN (09:54)
--- NOTE | 2017-08-19 10:00 | ER Document Report ---
ED Psych Disorder / Suicide - General Chief Complaint: Psych Problem Stated Complaint: ETOH TRAVEL OUTSIDE OF THE [place]. IN LAST 30 DAYS: No - HPI Patient complains to provider of: Hallucinating Notes: 47 years old male presents today saying that he ran out of his medication of Haldol for 2 weeks, having auditory hallucination and suicidal ideation. Denies any homicidal ideation. He has been drinking alcohol. - Related Data Allergies/Adverse Reactions: bacitracin [From Neosporin] Allergy (Verified 08/19/17 08:50) bacitracin zinc [From Neosporin] Allergy (Verified 08/19/17 08:50) gramicidin D [From Neosporin] Allergy (Verified 08/19/17 08:50) neomycin sulfate [From Neosporin] Allergy (Verified 08/19/17 08:50) polymyxin B [From Neosporin] Allergy (Verified 08/19/17 08:50) polymyxin B sulfate [From Neosporin] Allergy (Verified 08/19/17 08:50) Past Medical History - Social History Smoking Status: Current Every Day Smoker Frequency of alcohol use: Heavy Drug Abuse: None Family History: Reviewed & Not Pertinent Patient has suicidal ideation: Yes Patient has homicidal ideation: No - Past Medical History Cardiac Medical History: Reports: Hx Hypertension Denies: Hx Coronary Artery Disease EENT Medical History: Reports: None Neurological Medical History: Reports: None Endocrine Medical History: Reports: None Renal/ Medical History: Denies: Hx Peritoneal Dialysis Psychiatric Medical History: Reports: Hx Depression Past Surgical History: Reports: Hx Orthopedic Surgery - Immunizations Hx Diphtheria, Pertussis, Tetanus Vaccination: No Review of Systems - Review of Systems Notes: REVIEW OF SYSTEMS: CONSTITUTIONAL : Denies fever, chills, or sweats. Denies recent illness. EENT: Denies eye, ear, throat, or mouth pain or symptoms. Denies nasal or sinus congestion or discharge. Denies throat, tongue, or mouth swelling or difficulty swallowing. CARDIOVASCULAR: Denies chest pain. Denies palpitations or racing or irregular heart beat. Denies ankle edema. RESPIRATORY: Denies cough, cold, or chest congestion. Denies shortness of breath, difficulty breathing, or wheezing. GASTROINTESTINAL: Denies abdominal pain or distention. Denies nausea, vomiting , or diarrhea. Denies blood in vomitus, stools, or per rectum. Denies black, tarry stools. Denies constipation. GENITOURINARY: Denies difficulty urinating, painful urination, burning, frequency, blood in urine, or discharge. MUSCULOSKELETAL: Denies back or neck pain or stiffness. Denies joint pain or swelling. SKIN: Denies rash, lesions or sores. HEMATOLOGIC : Denies easy bruising or bleeding. LYMPHATIC: Denies swollen, enlarged glands. NEUROLOGICAL: Denies confusion or altered mental status. Denies passing out or loss of consciousness. Denies dizziness or lightheadedness. Denies headache. Denies weakness or paralysis or loss of use of either side. Denies problems with gait or speech. Denies sensory loss, numbness, or tingling. Denies seizures. PSYCHIATRIC: ALL OTHER SYSTEMS REVIEWED AND NEGATIVE. Dictation was performed using Jet voice recognition software PHYSICAL EXAMINATION: GENERAL: Well-appearing, well-nourished and in no acute distress. HEAD: Atraumatic, normocephalic. EYES: Pupils equal round and reactive to light, extraocular movements intact, sclera anicteric, conjunctiva are normal. ENT: Nares patent, oropharynx clear without exudates. Moist mucous membranes. NECK: Normal range of motion, supple without lymphadenopathy LUNGS: Breath sounds clear to auscultation bilaterally and equal. No wheezes rales or rhonchi. HEART: Regular rate and rhythm without murmurs ABDOMEN: Soft, nontender, nondistended abdomen. No guarding, no rebound. No masses appreciated. Musculoskeletal: Normal range of motion, no pitting or edema. No cyanosis. NEUROLOGICAL: Cranial nerves grossly intact. Normal speech, normal gait. Normal sensory, motor exams PSYCH: Normal mood, normal affect. SKIN: Warm, Dry, normal turgor, no rashes or lesions noted. Physical Exam - Vital signs Vitals: Temp Pulse Resp BP Pulse Ox 97.5 F 50 L 18 148/96 H 95 08/19/17 08:27 08/19/17 08:27 08/19/17 08:27 08/19/17 08:27 08/19/17 08:27 Course - Vital Signs Vital signs: Temp Pulse Resp BP Pulse Ox 97.5 F 50 L 18 148/96 H 95 08/19/17 08:27 08/19/17 08:27 08/19/17 08:27 08/19/17 08:27 08/19/17 08:27 - Laboratory Result Diagrams: 08/19/17 08:58 08/19/17 08:58 Laboratory results interpreted by me: 08/19/17 08/19/17 08/19/17 08:40 08:58 08:58 MCV 100 H MCH 34.2 H AST 115 H ALT 102 H Urine Urobilinogen 2.0 H Salicylates < 1.0 L Acetaminophen < 10 L - EKG Interpretation by Nh EKG shows normal: Sinus rhythm Rate: Normal Rhythm: NSR Additional EKG results interpreted by me: 08/19/17 10:00 Sinus rhythm at a rate of 87 bpm normal axis no acute ST elevation ST depression T-wave inversion noted. Discharge - Discharge Clinical Impression: Acute psychosis, Suicidal ideation Condition: Stable Disposition: PSYCH HOSP/UNIT
--- NOTE | 2017-08-19 11:21 | EKG REPORT ---
SEVERITY:- ABNORMAL ECG - SINUS TACHYCARDIA MULTIFORM VENTRICULAR PREMATURE COMPLEXES BORDERLINE PROLONGED QT INTERVAL : Confirmed by: Polo Dickey 19-Aug-2017 11:20:37
--- NOTE | 2017-08-19 11:53 | PSYCHOLOGICAL NOTE ---
Psych Note - Psych Note Psych Note: 47 years old male presents today saying that he ran out of his medication of Haldol for 2 weeks, having auditory hallucination and suicidal ideation. Denies any homicidal ideation. He has been drinking alcohol. Patient reports he has been having suicidal thoughts for approximately 1 month; denies plan. Patient states "I am going through withdrawals real bad... They gave me something but is not helping." Patient reports that he ran out of his medication (Haldol) 2 weeks ago; however, is unable to explain why he did not disclose this information and request assistance during his last two [facility] ED visits which have been within the last 2 weeks. Patient disclosed that he should have gone to [facility] to the third floor. When asked with the third floor is he states that it is a psychiatric unit. Patient continued to disclose that he needs to go inpatient psychiatric because "they normally hold me 8 days while I detox... I knew I shouldn't have come here... I need to go to detox." Patient continued to disclose that he does not have transportation and is unable to get to [facility]. Patient then stated that he has no way of getting home either. Behavior health team contacted the [facility]; no beds are available. Behavioral health team contact [facility] to confirm the patient's status with them. The patient did not follow up with them as recommended and the only time the have record of the patient is April. Patient is alert and orientated to person, place, time and circumstance. Mood is euthymic with congruent affect. Patient endorses passive suicidal ideation i.e. no plans means or intent. Patient denies homicidal ideation. Patient discloses he is having auditory hallucinations however patient is able to demonstrate he is not responding to internal stimuli by carrying on conversational speech is within normal rate, tone and prosody and his thought processes are organized and linear. Thought content is focused on achieving secondary gain i.e. inpatient detox. Attention and concentration are fair. Insight, judgment, impulse control are poor due to alcohol abuse. 303.00 (F10.229) alcohol intoxication; with use disorder severe Impression/Plan: Patient is psychiatrically cleared; however, he is under the influence of alcohol. He does not meet [place] IVC criteria. Patient endorses passive suicidal ideation i.e. no plans means or intent. Patient denies homicidal ideation. Patient discloses he is having auditory hallucinations; however, patient demonstrates he is not responding to internal stimuli by his conversational speech being within normal rate, tone and prosody and his thought processes are organized and linear. He was at a homeless correction /recovery program in [place] less than 3 weeks ago and chose to leave to come to [place] to a mobile home that has no running water or electricity. He did not follow up with [facility] for substance abuse assistance after his discharge on 2016 as part of his discharge plan. Patient reports that he ran out of his medication (Haldol) 2 weeks ago; however, is unable to explain why he did not disclose this information and request assistance during his last two [facility] ED visits which have been within the last 2 weeks. Patient was provided substance abuse resource packet again during this visit and is urged to follow up with [facility] as previously discussed. ED Physician in agreement with recommendation with the caveat that he will be at legal alcohol limit at about 2200 and thus discharge will take place after that occurs.
[2017-08-19 16:17] VITALS: BP 153/87
== END 2017-08-19 17:39 | disposition home or self-care (01) ==
LOC: ER 08:20
DX: R45.851 Suicidal ideations (principal); F23 Brief psychotic disorder; F17.200 Nicotine dependence, unspecified, uncomplicated; I10 Essential (primary) hypertension
CPT/HCPCS: 93005; 99285; 96372; 36415; 80307 ×4; 85025; 80053; 81001; 93010; J1630; J7030

== ENCOUNTER 2017-09-17 07:22 | Emergency (ER) | payer SELFPAY ==
--- NOTE | 2017-09-17 07:49 | ER Document Report ---
ED General <ANIVAL CHILDS - Last Filed: 09/17/17 12:48> - General Mode of Arrival: Ambulatory Information source: Patient TRAVEL OUTSIDE OF THE [place] IN LAST 30 DAYS: No - HPI Onset: Other Onset/Duration: Persistent Quality of pain: No pain Severity: Mild Pain Level: Denies Associated symptoms: None Exacerbated by: Denies Relieved by: Denies Similar symptoms previously: Yes Recently seen / treated by doctor: Yes <JOEY PITTS - Last Filed: 09/17/17 13:23> - General Stated Complaint: PYSCH EVALUATION Time Seen by Provider: 09/17/17 07:38 Notes: 47-year-old male who is on Haldol history of auditory hallucinations presents with complaints of hallucinations. (JOEY PITTS) - Related Data Allergies/Adverse Reactions: bacitracin [From Neosporin] Allergy (Verified 08/19/17 08:50) bacitracin zinc [From Neosporin] Allergy (Verified 08/19/17 08:50) gramicidin D [From Neosporin] Allergy (Verified 08/19/17 08:50) neomycin sulfate [From Neosporin] Allergy (Verified 08/19/17 08:50) polymyxin B [From Neosporin] Allergy (Verified 08/19/17 08:50) polymyxin B sulfate [From Neosporin] Allergy (Verified 08/19/17 08:50) Past Medical History - Social History Smoking Status: Current Every Day Smoker Cigarette use (# per day): No Chew tobacco use (# tins/day): No Frequency of alcohol use: Heavy Family History: Reviewed & Not Pertinent Patient has suicidal ideation: Yes Patient has homicidal ideation: No - Past Medical History Cardiac Medical History: Reports: Hx Hypertension Denies: Hx Coronary Artery Disease Renal/ Medical History: Denies: Hx Peritoneal Dialysis Psychiatric Medical History: Reports: Hx Depression Past Surgical History: Reports: Hx Orthopedic Surgery - Immunizations Hx Diphtheria, Pertussis, Tetanus Vaccination: No <JOEY PITTS - Last Filed: 09/17/17 13:23> Review of Systems <ANIVAL CHILDS - Last Filed: 09/17/17 12:48> <JOEY PITTS - Last Filed: 09/17/17 13:23> - Review of Systems Notes: REVIEW OF SYSTEMS: CONSTITUTIONAL : Denies fever, chills, or sweats. Denies recent illness. EENT: Denies eye, ear, throat, or mouth pain or symptoms. Denies nasal or sinus congestion or discharge. Denies throat, tongue, or mouth swelling or difficulty swallowing. CARDIOVASCULAR: Denies chest pain. Denies palpitations or racing or irregular heart beat. Denies ankle edema. RESPIRATORY: Denies cough, cold, or chest congestion. Denies shortness of breath, difficulty breathing, or wheezing. GASTROINTESTINAL: Denies abdominal pain or distention. Denies nausea, vomiting , or diarrhea. Denies blood in vomitus, stools, or per rectum. Denies black, tarry stools. Denies constipation. GENITOURINARY: Denies difficulty urinating, painful urination, burning, frequency, blood in urine, or discharge. MUSCULOSKELETAL: Denies back or neck pain or stiffness. Denies joint pain or swelling. SKIN: Denies rash, lesions or sores. HEMATOLOGIC : Denies easy bruising or bleeding. LYMPHATIC: Denies swollen, enlarged glands. NEUROLOGICAL: Denies confusion or altered mental status. Denies passing out or loss of consciousness. Denies dizziness or lightheadedness. Denies headache. Denies weakness or paralysis or loss of use of either side. Denies problems with gait or speech. Denies sensory loss, numbness, or tingling. Denies seizures. PSYCHIATRIC: Admits to hallucinations suicidal ideation ALL OTHER SYSTEMS REVIEWED AND NEGATIVE. Dictation was performed using [employer] voice recognition software PHYSICAL EXAMINATION: GENERAL: Well-appearing, well-nourished and in no acute distress. HEAD: Atraumatic, normocephalic. EYES: Pupils equal round and reactive to light, extraocular movements intact, sclera anicteric, conjunctiva are normal. ENT: Nares patent, oropharynx clear without exudates. Moist mucous membranes. NECK: Normal range of motion, supple without lymphadenopathy LUNGS: Breath sounds clear to auscultation bilaterally and equal. No wheezes rales or rhonchi. HEART: Regular rate and rhythm without murmurs ABDOMEN: Soft, nontender, nondistended abdomen. No guarding, no rebound. No masses appreciated. Musculoskeletal: Normal range of motion, no pitting or edema. No cyanosis. NEUROLOGICAL: Cranial nerves grossly intact. Normal speech, normal gait. Normal sensory, motor exams PSYCH: Normal mood, normal affect. SKIN: Warm, Dry, normal turgor, no rashes or lesions noted. (JOEY PITTS) - Vital signs Vitals: Temp Pulse Resp BP Pulse Ox 97.7 F 63 20 143/81 H 98 09/17/17 08:07 09/17/17 08:07 09/17/17 08:07 09/17/17 08:07 09/17/17 08:07 Course - Laboratory Result Diagrams: 09/17/17 08:45 09/17/17 08:45 <ANIVAL CHILDS - Last Filed: 09/17/17 12:48> - Laboratory Result Diagrams: 09/17/17 08:45 09/17/17 08:45 <JOEY PITTS - Last Filed: 09/17/17 13:23> - Re-evaluation Re-evalutation: 09/17/17 10:24 Patient states he has been taking his Haldol but requests Ativan for his hallucinations He has been evaluated multiple times in the past and has not harmed himself I have very low suspicion for any life-threatening issues 09/17/17 13:23 Patient was evaluated by mental health we will start medication on the patient but otherwise I have no suspicion for an actual suicide attempts After performing a Medical Screening Examination, I estimate there is LOW risk for any life threatening mental health issues. At this time the patient looks extremely well and has not attempted severe self harm. I have reevaluated this patient multiple times and no significant life threatening changes are noted. The patient and I have discussed the diagnosis and risks, and we agree with discharging home with close follow-up with the understanding that symptoms and presentations can change. We also discussed returning to the Emergency Department immediately if new or worsening symptoms occur. We have discussed the symptoms which are most concerning (hallucinations, thoughts or actions of self harm or harm to others) that necessitate immediate return. (JOEY PITTS) - Vital Signs Vital signs: Temp Pulse Resp BP Pulse Ox 97.2 F 65 20 142/70 H 99 09/17/17 12:07 09/17/17 12:07 09/17/17 12:07 09/17/17 12:07 09/17/17 12:07 - Laboratory Laboratory results interpreted by me: 09/17/17 09/17/17 09/17/17 07:50 08:45 08:45 MCV 100 H MCH 33.8 H ALT 82 H Urine Urobilinogen 2.0 H Salicylates < 1.0 L Acetaminophen < 10 L Discharge <ANIVAL CHILDS - Last Filed: 09/17/17 12:48> <JOEY PITTS - Last Filed: 09/17/17 13:23> - Discharge Clinical Impression: Alcohol abuse Psychosis Qualifiers: Psychosis type: unspecified psychosis type Qualified Code(s): F29 - Unspecified psychosis not due to a substance or known physiological condition Condition: Stable Disposition: HOME, SELF-CARE Additional Instructions: Hallucinations You seem to be having hallucinations. Hallucinations are seeing, hearing, or feeling things that don't exist. These symptoms commonly occur with drug abuse and schizophrenia. Drugs like PCP, LSD, MDMA, peyote, and "psychedelic mushrooms" can cause frightening hallucinations. Users of methamphetamine or crack cocaine often see and feel bugs crawling on their skin. Patients with schizophrenia may hear voices that no one else can hear. The delusions of schizophrenia often involve conspiracies or relationships that are not real. When symptoms are due to drug abuse, the mental state usually improves as the drug wears off. Someone you trust should be with you until you are better, to protect you and calm your fears. Tranquilizer medicine is helpful at controlling hallucinations, anxiety, and deluded thoughts. Get a proper diet and enough sleep. Most patients do very well when they get proper medical treatment and social support. You should return at once if your symptoms get worse, if you are having suicidal thoughts or thoughts about hurting others, or if you feel that you are in danger. DEPRESSION: Your evaluation reveals that you have mental depression. While symptoms may be vague, they often include disturbance of sleep, fatigue, loss of appetite , and general loss of interest in life. While depression may be a side effect of drugs, or a reaction to a major change in your life, many cases have no known cause. If depression is acute, and related to a major loss in your life, you can expect it to clear completely with time. If you have been depressed a long time , are prone to repeated bouts of depression or low mood, or have been thinking of suicide, get help. Depression can be treated with anti-depressant medication and counselling. Long-term depression will often take a few weeks to clear, even with appropriate medication. Follow-up care is important. SUICIDAL IDEATION: Suicidal ideation is a common medical term for thoughts about suicide, which may be as detailed as a formulated plan, without the suicidal act itself. Although most people who undergo suicidal ideation do not commit suicide, some go on to make suicide attempts. The range of suicidal ideation varies greatly from fleeting to detailed planning, role playing, and unsuccessful attempts. While thoughts about suicide are common, most people do not carry out serious actions to commit suicide. Based upon your evaluation and discussion with you, we do not believe you are currently at risk to act upon your thoughts of suicide. You have agreed to return to the Emergency Department, at any time , if you feel inclined to act upon your suicidal thoughts. FOLLOW-UP CARE: Please follow up with [facility] for your continued mental health services in 3-5 days. If you experience worsening or a significant change in your symptoms, notify the physician immediately or return to the Emergency Department at any time for re-evaluation. Prescriptions: Chlorpromazine HCl [Thorazine 50 mg Tablet] 50 mg PO Q8 #9 tablet Referrals: [facility] [Outside] - Follow up in 3-5 days
[2017-09-17 08:24] LABS: APPEARANCE,URINE SLIGHTLY-CLOUDY; BILIRUBIN,URINE NEGATIVE (NEGATIVE); CALCIUM OXALATE CRYSTALS,URINE MODERATE /HPF; COLOR,URINE YELLOW; GLUCOSE, URINE NEGATIVE (NEGATIVE); KETONES,URINE NEGATIVE (NEGATIVE); LEUKOCYTE ESTERASE,URINE NEGATIVE (NEGATIVE); NITRITE,URINE NEGATIVE (NEGATIVE); PROTEIN,URINE NEGATIVE (NEGATIVE); URINE SPECIFIC GRAVITY 1.024
[2017-09-17 08:37] LABS: URINE AMPHETAMINES SCREEN NEGATIVE; URINE BARBITURATES SCREEN NEGATIVE; URINE BENZODIAZEPINES SCREEN NEGATIVE; URINE COCAINE SCREEN NEGATIVE; URINE MARIJUANA (THC) SCREEN NEGATIVE; URINE METHADONE SCREEN NEGATIVE; URINE PHENCYCLIDINE SCREEN NEGATIVE
[2017-09-17 09:00] LABS: ABSOLUTE EOSINOPHILS # (AUTO) 0.3 10^3/uL (0.0-0.6); ABSOLUTE LYMPHOCYTES (AUTO) 1.2 10^3/uL (0.5-4.7); ABSOLUTE MONOCYTES (AUTO) 0.8 10^3/uL (0.1-1.4); ABSOLUTE NEUT (AUTO) 4.8 10^3/uL (1.7-8.2); BASOPHILS % (AUTO) 0.3 % (0-2); EOSINOPHILS % (AUTO) 3.6 % (0-6); HEMATOCRIT 43.9 % (37.9-51.0); HEMOGLOBIN 14.9 g/dL (13.5-17.0); LYMPHOCYTES % (AUTO) 16.8 % (13-45); MEAN CORPUSCULAR HEMOGLOBIN 33.8 pg (27.0-33.4); MEAN CORPUSCULAR HGB CONC 33.8 g/dL (32.0-36.0); MEAN CORPUSCULAR VOLUME 100 fl (80-97); MONOCYTES % (AUTO) 11.4 % (3-13); PLATELET COUNT 198 10^3/uL (150-450); RED BLOOD COUNT 4.39 10^6/uL (4.35-5.55); RED CELL DISTRIBUTION WIDTH 13.1 % (11.5-14.0); SEGMENTED NEUTROPHILS % (AUTO) 67.9 % (42-78); TOTAL CELLS COUNTED % (AUTO) 100 %; WHITE BLOOD COUNT 7.2 10^3/uL (4.0-10.5)
[2017-09-17 09:24] LABS: ALANINE AMINOTRANSFERASE 82 U/L (21-72); ALBUMIN 4.3 g/dL (3.5-5.0); ALKALINE PHOSPHATASE 92 U/L (38-126); ANION GAP 9 (5-19); ASPARTATE AMINO TRANSFERASE 48 U/L (17-59); BILIRUBIN,DIRECT 0.2 mg/dL (0.0-0.4); BILIRUBIN,TOTAL 0.6 mg/dL (0.2-1.3); BLOOD UREA NITROGEN 18 mg/dL (7-20); CALCIUM 9.8 mg/dL (8.4-10.2); CARBON DIOXIDE 28 mmol/L (22-30); CHLORIDE 103 mmol/L (98-107); GLUCOSE 104 mg/dL (75-110); POTASSIUM 4.2 mmol/L (3.6-5.0); SODIUM 140.1 mmol/L (137-145); TOTAL PROTEIN 7.1 g/dL (6.3-8.2)
[2017-09-17 09:31] LABS: ACETAMINOPHEN < 10 ug/mL (10-30); ALCOHOL < 10 mg/dL (NONE DETECTED); SALICYLATE < 1.0 mg/dL (2.0-20.0)
--- NOTE | 2017-09-17 11:39 | EKG REPORT ---
SEVERITY:- ABNORMAL ECG - SINUS RHYTHM CONSIDER LEFT VENTRICULAR HYPERTROPHY : Confirmed by: Polo Dickey 17-Sep-2017 11:38:37
[2017-09-17] MEDS ORDERED: CHLORPROMAZINE HCL INJ 25 MG/1 ML AMPULE IM ONE (11:49)
[2017-09-17 12:16] VITALS: BP 142/70
--- NOTE | 2017-09-17 12:21 | PSYCHOLOGICAL NOTE ---
Psych Note - Psych Note Psych Note: Pt presents to the ED via EMS. Pt was reported to be "hearing voices" for the last 3 years with little improvement. Pt claims he is "not on the right medication." Pt expresses his wishes to seek help in [facility] for treatment. Pt denies any SI/HI at the time of the assessment. Pt claims to be hearing "random" voices. Pt is ambulatory at the time of the assessment and cooperative per report. Patient disclosed he has been hearing voices "all night and all morning." When asked if he is currently hearing voices he states "not right now." He reports that he is feeling "a little better" than last night. He confirms he has electricity and water running now in his home. Patient discloses that his voice is are negative in nature telling him to kill himself, they are mostly inside his head, is just one voice that is male. Patient states that he has been on Haldol previously however feels that it did not work. Patient is unable to recall any other medications he has previously been on but then states "Ativan seems to have helped a little bit." Patient is alert and orientated to person place time and circumstance. Mood is euthymic with congruent affect. Patient denies suicidal and homicidal ideation. Patient endorses auditory hallucinations; patient is not demonstrating responding to internal stimuli currently.Delusions are absent behaviors congruent with intact reality based presentation i.e. organized and linear thought process. Conversational speech was within normal rate tone and prosody. Patient states he has been hearing voices all evening and morning however they have stopped once clinician came in. Eye contact was fair. Intellectual abilities appear to be within the average range. Attention and concentration are good. Insight, judgment, impulse control are good as evidenced by patient coming in requesting assistance. Diagnosis: 303.90 (F10.20) Alcohol Use Disorder, Severe per history Impression/Plan: Patient is psychiatrically cleared He does not meet [place] IVC criteria. Patient has a history of substance abuse and being noncompliant with treatment recommendations. (patient is currently asking for Ativan for hallucinations). He was last seen on 08/19/2017 (Less than one month ago). At that time, the patient endorsed passive suicidal ideation and disclosed he is having auditory hallucinations; however, patient demonstrated he is not responding to internal stimuli by his conversational speech being within normal rate, tone and prosody and his thought processes are organized and linear. He was at a homeless [facility] program in [place] in July 2017 and chose to leave and come to [facility]. The patient has been living in a mobile home that has no running water or electricity but states he had been able to turn them on. He did not follow up with [facility] for [facility] abuse assistance after his discharge on 08/04/2017 as part of his discharge plan, patient is strongly urged to follow up with [facility] for his continued mental health treatment. Dr. Vizcaino was consulted and the care and management of this patient; attending physician is in agreement with recommendations and disposition.
== END 2017-09-17 13:26 | disposition home or self-care (01) ==
LOC: ER 07:22
DX: F29 Unspecified psychosis not due to a substance or known physiological condition (principal); Z79.899 Other long term (current) drug therapy; R45.851 Suicidal ideations; I10 Essential (primary) hypertension; F17.200 Nicotine dependence, unspecified, uncomplicated; Z88.3 Allergy status to other anti-infective agents
CPT/HCPCS: 93005; 99285; 96372; 36415; 80307 ×4; 85025; 80053; 81001; 93010; J3230

== ENCOUNTER 2018-04-20 11:21 | Emergency (ER) | payer SELFPAY ==
--- NOTE | 2018-04-20 11:36 | EKG REPORT ---
SEVERITY:- ABNORMAL ECG - SINUS RHYTHM LEFT VENTRICULAR HYPERTROPHY BORDERLINE PROLONGED QT INTERVAL : Confirmed by: Luzma Davey MD 20-Apr-2018 11:35:09
[2018-04-20 11:57] LABS: ABSOLUTE EOSINOPHILS # (AUTO) 0.1 10^3/uL (0.0-0.6); ABSOLUTE LYMPHOCYTES (AUTO) 0.8 10^3/uL (0.5-4.7); ABSOLUTE MONOCYTES (AUTO) 0.3 10^3/uL (0.1-1.4); ABSOLUTE NEUT (AUTO) 2.7 10^3/uL (1.7-8.2); BASOPHILS % (AUTO) 0.7 % (0-2); EOSINOPHILS % (AUTO) 1.9 % (0-6); HEMATOCRIT 42.2 % (37.9-51.0); HEMOGLOBIN 14.4 g/dL (13.5-17.0); LYMPHOCYTES % (AUTO) 19.9 % (13-45); MEAN CORPUSCULAR HEMOGLOBIN 33.4 pg (27.0-33.4); MEAN CORPUSCULAR HGB CONC 34.1 g/dL (32.0-36.0); MEAN CORPUSCULAR VOLUME 98 fl (80-97); MONOCYTES % (AUTO) 8.8 % (3-13); PLATELET COUNT 195 10^3/uL (150-450); RED BLOOD COUNT 4.31 10^6/uL (4.35-5.55); RED CELL DISTRIBUTION WIDTH 15.8 % (11.5-14.0); SEGMENTED NEUTROPHILS % (AUTO) 68.7 % (42-78); TOTAL CELLS COUNTED % (AUTO) 100 %; WHITE BLOOD COUNT 3.9 10^3/uL (4.0-10.5)
[2018-04-20 12:11] LABS: APPEARANCE,URINE CLEAR; BILIRUBIN,URINE NEGATIVE (NEGATIVE); COLOR,URINE YELLOW; GLUCOSE, URINE NEGATIVE (NEGATIVE); KETONES,URINE TRACE mg/dL (NEGATIVE); LEUKOCYTE ESTERASE,URINE NEGATIVE (NEGATIVE); NITRITE,URINE NEGATIVE (NEGATIVE); PROTEIN,URINE 30 mg/dL (NEGATIVE); URINE SPECIFIC GRAVITY 1.016
[2018-04-20] MEDS ORDERED: CLONIDINE HCL 0.1 MG TABLET PO ONE (12:20)
--- NOTE | 2018-04-20 12:21 | ER Document Report ---
ED Psych Disorder / Suicide - General Mode of Arrival: Ambulatory Information source: Patient TRAVEL OUTSIDE OF THE [place] IN LAST 30 DAYS: No <JAVI SINCLAIR - Last Filed: 04/20/18 13:36> <SANTANA PAUL - Last Filed: 04/20/18 15:03> <EN MARTIN - Last Filed: 04/20/18 15:40> - General Chief Complaint: Suicidal Ideation Stated Complaint: SUICIDAL IDEATION Time Seen by Provider: 04/20/18 12:13 Notes: 48-year-old male who presents to the emergency department today with complaints of possible alcohol withdrawal. Patient states he wishes to get help to stop drinking. Patient states he drinks x3-4 40 ounce malt liquor a day. Patient is a 1 pack per day smoker. Patient states he last used methamphetamine 2-3 days ago. (JAVI SINCLAIR) - Related Data Allergies/Adverse Reactions: bacitracin [From Neosporin] Allergy (Verified 08/19/17 08:50) bacitracin zinc [From Neosporin] Allergy (Verified 08/19/17 08:50) gramicidin D [From Neosporin] Allergy (Verified 08/19/17 08:50) neomycin sulfate [From Neosporin] Allergy (Verified 08/19/17 08:50) polymyxin B [From Neosporin] Allergy (Verified 08/19/17 08:50) polymyxin B sulfate [From Neosporin] Allergy (Verified 08/19/17 08:50) Past Medical History - General Information source: Patient - Social History Smoking Status: Current Every Day Smoker Cigarette use (# per day): No Frequency of alcohol use: None Drug Abuse: Methamphetamine Lives with: Alone Family History: Reviewed & Not Pertinent - Past Medical History Cardiac Medical History: Reports: Hx Hypertension Renal/ Medical History: Denies: Hx Peritoneal Dialysis Psychiatric Medical History: Reports: Hx Depression Past Surgical History: Reports: Hx Orthopedic Surgery - Immunizations Hx Diphtheria, Pertussis, Tetanus Vaccination: No <JAVI SINCLAIR - Last Filed: 04/20/18 13:36> Review of Systems - Review of Systems Constitutional: No symptoms reported EENT: No symptoms reported Cardiovascular: No symptoms reported Respiratory: No symptoms reported Gastrointestinal: No symptoms reported Genitourinary: No symptoms reported Male Genitourinary: No symptoms reported Musculoskeletal: No symptoms reported Skin: No symptoms reported Hematologic/Lymphatic: No symptoms reported Neurological/Psychological: See HPI, Other - alcohol withdrawal -: Yes All other systems reviewed and negative <JAVI SINCLAIR - Last Filed: 04/20/18 13:36> Physical Exam <JAVI SINCLAIR - Last Filed: 04/20/18 13:36> <CASSANDRA PAULI - Last Filed: 04/20/18 15:03> <EN MARTIN - Last Filed: 04/20/18 15:40> - Vital signs Vitals: Pulse 116 H 04/20/18 11:42 - Notes Notes: Physical Exam: General: Alert, appears well. Slightly jittery. HEENT: Normocephalic. Atraumatic. PERRL. Extraocular movements intact. Oropharynx clear. Neck: Supple. Non-tender. Respiratory: No respiratory distress. Clear and equal breath sounds bilaterally. Cardiovascular: Regular rate and rhythm. No tachycardia. Abdominal: Normal Inspection. Non-tender. No distension. Normal Bowel Sounds. Back: Non-tender. No deformity or step off. Extremities: Moves all four extremities. Upper extremities: Normal inspection. Normal ROM. Lower extremities: Normal inspection. No edema. Normal ROM. Neurological: Normal cognition. AAOx4. Normal speech. Psychological: Normal affect. Normal Mood. Skin: Warm. Dry. Normal color. No sweating. (JAVI SINCLAIR) Course - Laboratory Result Diagrams: 04/20/18 11:35 04/20/18 11:35 <JAVI SINCLAIR - Last Filed: 04/20/18 13:36> - Laboratory Result Diagrams: 04/20/18 11:35 04/20/18 11:35 <SANTANA PAUL - Last Filed: 04/20/18 15:03> - Laboratory Result Diagrams: 04/20/18 11:35 04/20/18 11:35 - EKG Interpretation by [facility] EKG shows normal: Sinus rhythm, Clover, QRS Complexes, ST-T Waves. abnormal: Intervals - Borderline prolonged QT interval Voltage: Consistant with LVH When compared to previous EKG there are: No significant change <EN MARTIN - Last Filed: 04/20/18 15:40> - Vital Signs Vital signs: Temp Pulse Resp BP Pulse Ox 116 H 04/20/18 11:42 - Laboratory Laboratory results interpreted by me: 04/20/18 04/20/18 04/20/18 11:35 11:35 11:35 WBC 3.9 L RBC 4.31 L MCV 98 H RDW 15.8 H Glucose 122 H AST 162 H ALT 142 H Urine Protein 30 H Urine Ketones TRACE H Urine Urobilinogen 4.0 H Salicylates < 1.0 L Acetaminophen < 10 L Discharge <JAVI SINCLAIR - Last Filed: 04/20/18 13:36> <PEGGYJULESSANTANA - Last Filed: 04/20/18 15:03> <EN MARTIN - Last Filed: 04/20/18 15:40> - Discharge Clinical Impression: Alcohol abuse with physiological dependence Alcoholic hepatitis Qualifiers: Ascites presence: without ascites Qualified Code(s): K70.10 - Alcoholic hepatitis without ascites Condition: Stable Disposition: HOME, SELF-CARE Additional Instructions: You were seen in the Emergency Department and evaluated by the Medical and Behavioral Health Teams for alcohol abuse with physiological dependence, and determined to be appropriate for discharge. You were provided information on community based services and on detox services in the surrounding areas. You are encouraged to follow up with any of the resources provided. ACUTE ALCOHOL INTOXICATION and ALCOHOL ABUSE: Your evaluation revealed very high levels of alcohol. You can from drinking a large amount of alcohol rapidly! Further, there's the risk of falls , traffic accidents, and fights. A high portion (about 50 percent) of the serious injuries seen in hospital emergency rooms are caused by alcohol. Alcohol overdose is usually due to an underlying emotional or psychiatric problem. You may benefit from counselling. If "binge" drinking is an ongoing problem for you, or if you drink ANY AMOUNT of alcohol EVERY day, you most likely have a tendency to alcoholism. You should avoid alcohol totally. We can refer you for treatment. Persons with alcohol problems are often also prone to other addictions -- you should discuss any use of medications or drugs with the doctor. You should be watched at home for the next several hours by someone who has not been drinking. Get extra fluids for the next 24 hours. Call the doctor if there is repeated vomiting, increasing headache, decreasing level of alertness, or any other worsening. CHRONIC ALCOHOLISM and ALCOHOL ABUSE: Your evaluation reveals evidence of chronic alcoholism, an addiction to alcohol. The tendency to alcoholism may be inherited. Chronic use of alcohol weakens muscles, causes fatty deposits in the liver , damages the stomach, makes you more prone to infections, and can cause defects in unborn children. In the long run, brain atrophy and cirrhosis of the liver result. You are also at greater risk for certain types of cancer, such as cancer of the mouth, throat, stomach, and liver. Counselling services are available to help you. In-hospital treatment programs often help. Support groups such as Alcoholics Anonymous can be very useful in beating this addiction. Your physician can make a referral for you. As alcoholics often are prone to other addictions, you should discuss your use of any other medications with the doctor. FOLLOW-UP CARE: If you have been referred to a physician for follow-up care, call the physician s office for an appointment as you were instructed or within the next two days. If you experience worsening or a significant change in your symptoms, notify the physician immediately or return to the Emergency Department at any time for re-evaluation. Your lab work shows that you probably are developing alcoholic hepatitis. You will be given a prescription for clonidine to take to help reduce your withdrawal symptoms if you decide to stop drinking. Follow-up with [facility] for help with your alcohol problems. RETURN TO THE EMERGENCY ROOM IF ANY NEW OR WORSENING SYMPTOMS. Prescriptions: Clonidine HCl [Catapres 0.1 mg Tablet] 0.1 mg PO Q8 #12 tablet Referrals: [facility] [Provider Group] - Follow up as needed Scribe Attestation: 04/20/18 15:36 I personally performed the services described in the documentation, reviewed and edited the documentation which was dictated to the scribe in my presence, and it accurately records my words and actions. (EN MATRIN) Scribe Documentation - Scribe Written by Mercy:: Mercy Erazo, 04/20/2018 [id number] acting as scribe for :: Corey <JAVI SINCLAIR - Last Filed: 04/20/18 13:36>
[2018-04-20 12:29] LABS: ALANINE AMINOTRANSFERASE 142 U/L (21-72); ALBUMIN 3.9 g/dL (3.5-5.0); ALCOHOL 241 mg/dL (NONE DETECTED); ALKALINE PHOSPHATASE 103 U/L (38-126); ANION GAP 13 (5-19); ASPARTATE AMINO TRANSFERASE 162 U/L (17-59); BILIRUBIN,DIRECT 0.2 mg/dL (0.0-0.4); BILIRUBIN,TOTAL 0.6 mg/dL (0.2-1.3); BLOOD UREA NITROGEN 7 mg/dL (7-20); CALCIUM 8.5 mg/dL (8.4-10.2); CARBON DIOXIDE 26 mmol/L (22-30); CHLORIDE 100 mmol/L (98-107); GLUCOSE 122 mg/dL (75-110); POTASSIUM 4.2 mmol/L (3.6-5.0); SODIUM 139.2 mmol/L (137-145); TOTAL PROTEIN 6.9 g/dL (6.3-8.2)
[2018-04-20 12:30] LABS: URINE AMPHETAMINES SCREEN NEGATIVE; URINE BARBITURATES SCREEN NEGATIVE; URINE BENZODIAZEPINES SCREEN NEGATIVE; URINE COCAINE SCREEN NEGATIVE; URINE MARIJUANA (THC) SCREEN NEGATIVE; URINE METHADONE SCREEN NEGATIVE; URINE PHENCYCLIDINE SCREEN NEGATIVE
[2018-04-20 13:25] LABS: ACETAMINOPHEN < 10 ug/mL (10-30); SALICYLATE < 1.0 mg/dL (2.0-20.0)
[2018-04-20 15:54] VITALS: BP 175/80
== END 2018-04-20 15:54 | disposition home or self-care (01) ==
LOC: ER 11:21
DX: K70.10 Alcoholic hepatitis without ascites (principal); F10.20 Alcohol dependence, uncomplicated; R45.851 Suicidal ideations; F17.210 Nicotine dependence, cigarettes, uncomplicated; I10 Essential (primary) hypertension; Z88.3 Allergy status to other anti-infective agents
CPT/HCPCS: 36415; 80053; 80307; 81001; 85025; 93005; 93010; 99285

== ENCOUNTER 2019-02-07 19:43 | Emergency (ER) | payer SELFPAY ==
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
--- NOTE | 2019-02-07 21:08 | RADIOLOGY REPORT (SQ) ---
EXAM DESCRIPTION: CT HEAD WITHOUT IV CONTRAST COMPLETED DATE/TME: 02/07/2019 19:48 CLINICAL HISTORY: 48 years, Male, altered mental status COMPARISON: None. TECHNIQUE: CT brain without contrast. This exam was performed according to our departmental dose optimization program which includes use of automated exposure control, adjustment of the mA and/or kV according to patient size and/or use of iterative reconstruction technique. Images stored on PACS. All CT scanners at this facility use dose modulation, iterative reconstruction, and/or weight based dosing when appropriate to reduce radiation dose to as low as reasonably achievable (ALARA). [facility]: Dose Right [facility]: CareDose [facility]: Dose Right [facility]: Teradose 4D [facility]: CAL [employer] LIMITATIONS: None. FINDINGS: Nonspecific focus of subcentimeter hypoattenuation present within the abiodun may reflect sequela of prior, age indeterminate infarction. The ventricles, sulci, and cisterns are within normal limits. The rose-white matter differentiation is preserved. There is no mass effect, midline shift, intra- or extra-axial fluid collection/acute hemorrhage. The osseous structures are unremarkable. The paranasal sinuses reveal mucosal thickening and mastoid air cells are clear. IMPRESSION: 1. Nonspecific focus of subcentimeter hypoattenuation present within the abiodun may reflect sequela of prior, age indeterminate infarction. 2. No acute cortical, territorial infarction or intracranial hemorrhage. TECHNICAL DOCUMENTATION: Quality ID # 436: Final reports with documentation of one or more dose reduction techniques (e.g., Automated exposure control, adjustment of the mA and/or kV according to patient size, use of iterative reconstruction technique) copyright 2011 [employer]- All Rights Reserved
[2019-02-07 21:41] LABS: ABSOLUTE LYMPHOCYTES (AUTO) 2.7 10^3/uL (0.5-4.7); ABSOLUTE MONOCYTES (AUTO) 0.6 10^3/uL (0.1-1.4); ABSOLUTE NEUT (AUTO) 2.1 10^3/uL (1.7-8.2); BASOPHILS % (AUTO) 0.7 % (0-2); EOSINOPHILS % (AUTO) 0.8 % (0-6); HEMATOCRIT 48.8 % (37.9-51.0); HEMOGLOBIN 16.3 g/dL (13.5-17.0); LYMPHOCYTES % (AUTO) 48.6 % (13-45); MEAN CORPUSCULAR HEMOGLOBIN 32.2 pg (27.0-33.4); MEAN CORPUSCULAR HGB CONC 33.4 g/dL (32.0-36.0); MEAN CORPUSCULAR VOLUME 96 fl (80-97); MONOCYTES % (AUTO) 11.4 % (3-13); PLATELET COUNT 244 10^3/uL (150-450); RED BLOOD COUNT 5.07 10^6/uL (4.35-5.55); RED CELL DISTRIBUTION WIDTH 12.8 % (11.5-14.0); SEGMENTED NEUTROPHILS % (AUTO) 38.5 % (42-78); TOTAL CELLS COUNTED % (AUTO) 100 %; WHITE BLOOD COUNT 5.5 10^3/uL (4.0-10.5)
[2019-02-07 21:57] LABS: ALANINE AMINOTRANSFERASE 29 U/L (21-72); ALCOHOL 296 mg/dL (NONE DETECTED); ALKALINE PHOSPHATASE 91 U/L (38-126); ANION GAP 16 (5-19); ASPARTATE AMINO TRANSFERASE 49 U/L (17-59); BILIRUBIN,DIRECT 0.2 mg/dL (0.0-0.4); BILIRUBIN,TOTAL 0.5 mg/dL (0.2-1.3); BLOOD UREA NITROGEN 11 mg/dL (7-20); CALCIUM 8.7 mg/dL (8.4-10.2); CARBON DIOXIDE 24 mmol/L (22-30); CHLORIDE 109 mmol/L (98-107); CREATINE KINASE 413 U/L (55-170); GLUCOSE 98 mg/dL (75-110); POTASSIUM 4.2 mmol/L (3.6-5.0); SODIUM 148.6 mmol/L (137-145); TOTAL PROTEIN 7.2 g/dL (6.3-8.2)
[2019-02-07 21:58] LABS: ACETAMINOPHEN < 10 ug/mL (10-30); SALICYLATE < 1.0 mg/dL (2.0-20.0)
[2019-02-07] MEDS: MAGNESIUM SULFATE/D5W 1 GM/100 ML RTUPB IV SCH ×2 (22:07→22:25)
--- NOTE | 2019-02-07 22:16 | EKG REPORT ---
SEVERITY:- ABNORMAL ECG - SINUS RHYTHM LEFT VENTRICULAR HYPERTROPHY PROLONGED QT INTERVAL : Confirmed by: Luzma Davey MD 07-Feb-2019 22:15:36
[2019-02-07] MEDS ORDERED: NORMAL SALINE 1000 ML 1,000 ML IV ONE (22:41)
[2019-02-07] MEDS ORDERED: NORMAL SALINE 1000 ML 1,000 ML with POTASSIUM CHLORIDE 20 MEQ, MAGNESIUM SULFATE 8 MEQ,... IV ONE ×5 (22:42)
[2019-02-07 23:25] LABS: APPEARANCE,URINE CLEAR; BILIRUBIN,URINE NEGATIVE (NEGATIVE); COLOR,URINE YELLOW; GLUCOSE, URINE NEGATIVE (NEGATIVE); KETONES,URINE NEGATIVE (NEGATIVE); LEUKOCYTE ESTERASE,URINE NEGATIVE (NEGATIVE); NITRITE,URINE NEGATIVE (NEGATIVE); PROTEIN,URINE NEGATIVE (NEGATIVE); URINE SPECIFIC GRAVITY 1.014; UROBILINOGEN,URINE NEGATIVE mg/dL (<2.0)
[2019-02-07 23:36] LABS: URINE AMPHETAMINES SCREEN NEGATIVE; URINE BARBITURATES SCREEN NEGATIVE; URINE BENZODIAZEPINES SCREEN UNCONFIRMED POSITIVE; URINE COCAINE SCREEN NEGATIVE; URINE MARIJUANA (THC) SCREEN NEGATIVE; URINE METHADONE SCREEN NEGATIVE; URINE PHENCYCLIDINE SCREEN NEGATIVE
[2019-02-08 07:55] VITALS: BP 140/91
== END 2019-02-08 08:22 | disposition home or self-care (01) ==
LOC: ER 19:43
DX: F10.120 Alcohol abuse with intoxication, uncomplicated (principal); S90.812A Abrasion, left foot, initial encounter; S90.811A Abrasion, right foot, initial encounter; X58.XXXA Exposure to other specified factors, initial encounter; R40.0 Somnolence; I10 Essential (primary) hypertension; F17.200 Nicotine dependence, unspecified, uncomplicated
CPT/HCPCS: 93005; 99285; 96365; 36415; 80307 ×4; 82550; 85025; 80053; 81001; 84484; 83605; 70450; 93010; J3475

== ENCOUNTER 2019-07-30 20:34 | Emergency (ER) | payer SELFPAY ==
[2019-07-30] MEDS ORDERED: ZIPRASIDONE MESYLATE INJ/PF 20 MG SDV IM ONE (21:11)
[2019-07-31] MEDS ORDERED: ZIPRASIDONE MESYLATE INJ/PF 20 MG SDV IM ONE (02:36)
--- NOTE | 2019-07-31 06:23 | ER Document Report ---
ED Psych Disorder / Suicide - General Mode of Arrival: Ambulatory Information source: Law Enforcement TRAVEL OUTSIDE OF THE [place] IN LAST 30 DAYS: No <BERHANE KINGSLEY - Last Filed: 07/31/19 07:31> <SILVAKRZYSZTOF ANDERSON - Last Filed: 07/31/19 10:18> <MAHESHMATTHEW - Last Filed: 07/31/19 11:00> - General Chief Complaint: Psych Problem Stated Complaint: IVC Time Seen by Provider: 07/30/19 21:01 Primary Care Provider: [facility] [Outside] - Follow up as needed Notes: Patient is a 49-year-old male with history of alcoholism and depression presenting to the emergency department on IVC papers via [facility] department. IVC papers state that patient had suicidal ideations as reported by a neighbor. Patient denies this. Patient states he does not know why he is here and wants to go home. He denies to provider any suicidal or homicidal ideations however he did report to nursing staff that perhaps he would be better off . Patient does have longstanding history of inpatient mental health treatment. (BERHANE KINGSLEY) - Related Data Allergies/Adverse Reactions: bacitracin [From Neosporin] Allergy (Verified 07/30/19 21:09) bacitracin zinc [From Neosporin] Allergy (Verified 07/30/19 21:09) gramicidin D [From Neosporin] Allergy (Verified 07/30/19 21:09) neomycin sulfate [From Neosporin] Allergy (Verified 07/30/19 21:09) polymyxin B [From Neosporin] Allergy (Verified 07/30/19 21:09) polymyxin B sulfate [From Neosporin] Allergy (Verified 07/30/19 21:09) Past Medical History - General Information source: Patient - Social History Smoking Status: Current Every Day Smoker Frequency of alcohol use: daily Drug Abuse: Methamphetamine Family History: Reviewed & Not Pertinent Patient has suicidal ideation: Yes Patient has homicidal ideation: No - denies - Past Medical History Cardiac Medical History: Reports: Hx Hypertension Denies: Hx Coronary Artery Disease Renal/ Medical History: Denies: Hx Peritoneal Dialysis Psychiatric Medical History: Reports: Hx Depression Past Surgical History: Reports: Hx Orthopedic Surgery - Immunizations Hx Diphtheria, Pertussis, Tetanus Vaccination: No <BERHANE KINGSLEY - Last Filed: 07/31/19 07:31> Review of Systems - Review of Systems Constitutional: No symptoms reported EENT: No symptoms reported Cardiovascular: No symptoms reported Respiratory: No symptoms reported Gastrointestinal: No symptoms reported Genitourinary: No symptoms reported Male Genitourinary: No symptoms reported Musculoskeletal: No symptoms reported Skin: No symptoms reported Hematologic/Lymphatic: No symptoms reported Neurological/Psychological: Suicidal ideation <BERHANE KINGSLEY Jordan - Last Filed: 07/31/19 07:31> Physical Exam <BERHANE KINGSLEY Jordan - Last Filed: 07/31/19 07:31> - Vital signs Vitals: Temp Pulse Resp BP Pulse Ox 97.9 F 131 H 17 172/110 H 99 07/30/19 20:47 07/30/19 20:47 07/30/19 20:47 07/30/19 20:47 07/30/19 20:47 - Notes Notes: PHYSICAL EXAMINATION: GENERAL: Disheveled, appears older than stated age. HEAD: Atraumatic, normocephalic. EYES: Pupils equal round and reactive to light, extraocular movements intact, sclera anicteric, conjunctiva are normal. ENT: Nares patent, oropharynx clear without exudates. Moist mucous membranes. NECK: Normal range of motion, supple without lymphadenopathy LUNGS: Lung sounds clear but diminished bilaterally. HEART: Regular rate and rhythm without murmurs ABDOMEN: Soft, nontender, nondistended abdomen. No guarding, no rebound. No masses appreciated. Musculoskeletal: Normal range of motion, no pitting or edema. No cyanosis. NEUROLOGICAL: Cranial nerves grossly intact. Normal speech, normal gait. Normal sensory, motor exams PSYCH: Normal mood, normal affect. SKIN: Warm, Dry, normal turgor, no rashes or lesions noted. (BERHANE KINGSLEY) Course - Laboratory Result Diagrams: 07/31/19 07:01 07/31/19 02:47 <SANCHOBERHANE DRIVER Jordan - Last Filed: 07/31/19 07:31> - Laboratory Result Diagrams: 07/31/19 07:01 07/31/19 02:47 <KRZYSZTOF SILVA - Last Filed: 07/31/19 10:18> - Laboratory Result Diagrams: 07/31/19 07:01 07/31/19 02:47 <MATTHEW ARAGON - Last Filed: 07/31/19 11:00> - Re-evaluation Re-evalutation: Patient presents the emergency department on involuntary commitment orders. Patient has long-standing history of mental health and substance abuse issues. Patient is being calm and mostly cooperative although he is refusing blood work. Will attempt to redraw again later 07/31/19 07:31 Patient finally allowed staff to draw blood, results pending. EKG shows a sinus tachycardia, rate 107, prolonged QTC of 502, previous EKG done on 02/07/2019 also shows a prolonged QTC of 501. EKG is unchanged from previous. No ST segment elevations or depressions to suggest ischemia. Once all labs are resulted patient should be medically cleared. He will then be able to see psychiatric team for further disposition. 07/31/19 07:[address] did place orders for patient's blood pressure medication as patient is hypertensive. He has been declining the medication offered by the nurse. Will attempt again shortly. (BERHANE KINGSLEY) 07/31/19 10:55 See progress note as well. Patient is an afebrile, well-hydrated, 49-year-old male who presents with substance abuse and depression. Vitals are acceptable without significant tachycardia, tachypnea, or hypoxia. PE is otherwise unremarkable. Patient is nontoxic-appearing and is tolerating p.o. without difficulty. He has no SI or HI. He is not currently manic. He does hold conversations well otherwise. He has been cleared by our mental health team for discharge without any medicine recommendations at this time. Resources have been reviewed and provided to the patient. Low suspicion for any sepsis, endocarditis, acute intracranial pathology, meningitis, fracture, acute abdomen, acute withdrawal, or other systemic infection at this time. Patient is aware that this condition can change from initial presentation and needs to monitor symptoms closely for any acute changes. Conservative measures otherwise for symptoms. Recheck with your PCM in 3-5 days or as needed otherwise. Return to the ED with any worsening/concerning symptoms otherwise as reviewed discharge. Patient is in agreement. (MATTHEW ARAGON) - Vital Signs Vital signs: Temp Pulse Resp BP Pulse Ox 98.1 F 100 16 137/74 H 97 07/31/19 09:37 07/31/19 09:37 07/31/19 09:37 07/31/19 09:37 07/31/19 09:37 - Laboratory Laboratory results interpreted by me: 07/31/19 07/31/19 07/31/19 02:47 07:01 08:00 MCV 101 H MCH 34.3 H RDW 14.5 H [place] % (Auto) 19.2 H Glucose 112 H AST 103 H Urine Urobilinogen 2.0 H Salicylates < 1.0 L Acetaminophen < 10 L Discharge <SANCHOBERHANE C - Last Filed: 07/31/19 07:31> <KRZYSZTOF SILVA - Last Filed: 07/31/19 10:18> <MATTHEW ARAGON - Last Filed: 07/31/19 11:00> - Discharge Clinical Impression: Involuntary commitment Condition: Stable Disposition: HOME, SELF-CARE Additional Instructions: You have been evaluated by both medical and behavioral health teams and have been deemed appropriate for discharge. You have been provided with a community mental health resource list. You have also been provided with a substance abuse treatment resource list. You are highly encouraged to follow up with mental health and substance abuse treatment. Social service referrals have been provided. The contact information for mobile crisis has been provided, as needed. Altered Mental Status An altered mental status is a change in the normal functioning of the brain. This alteration of function can range from minor decreased brain function with some forgetfulness and confusion to complete loss of consciousness and coma. There are many possible causes of an altered mental status and include brain injuries such as trauma or strokes, problems with oxygen supply to the brain, fever and infections of the brain and/or elsewhere in the body, metabolic abnormalities such as low or high blood sugar, overdoses or excessive medication ingestion, and mental and psychiatric illnesses. Sometimes the altered mental status resolves and a definite cause is not determined. If a cause for your altered mental status was found, it has likely been corrected. Your evaluation has not shown any condition that requires that you be admitted to the hospital. It is believed that you are safe to leave and return to your home. If you have a return of your symptoms, you should return for re-evaluation. AT ANY TIME, IF YOUR SYMPTOMS CHANGE SIGNIFICANTLY OR WORSEN OR YOU DEVELOP NEW SYMPTOMS, RETURN TO THE EMERGENCY DEPARTMENT IMMEDIATELY FOR RE-EVALUATION. Maintain adequate fluid and food intake Healthy diet tylenol/motrin if needed Monitor for any worsening symptoms Avoid drug/alcohol use Make sure you are staying hydrated enough to urinate and have normal BM's Recheck with your PCM in 3-5 days or as needed Schedule consult with an outpatient mental health facility* resources have been provided to you. Return to the ED with any worsening symptoms and/or development of fever, headache, changes in behavior/mentation/vision/speech, chest pain, palpitations, syncope, shortness of breath, trouble breathing, abdominal pain, n/v/d, blood in stool/urine, loss of control of bowel/bladder, urinary retention, muscle weakness/paralysis, saddle anesthesia, numbness/tingling, suicidal/homicidal ideations, visual/auditory hallucinations, or other worsening symptoms that are concerning to you. Forms: Elevated Blood Pressure, Smoking Cessation Education Referrals: [facility] [Outside] - Follow up as needed
[2019-07-31] MEDS ORDERED: CLONIDINE HCL 0.1 MG TABLET PO SCH (06:45)
[2019-07-31] MEDS ORDERED: CHLORPROMAZINE HCL 50 MG TABLET PO SCH (06:45)
[2019-07-31 06:53] LABS: ALBUMIN 3.9 g/dL (3.5-5.0); ALKALINE PHOSPHATASE 96 U/L (38-126); ANION GAP 9 (5-19); ASPARTATE AMINO TRANSFERASE 103 U/L (17-59); BILIRUBIN,DIRECT 0.2 mg/dL (0.0-0.4); BILIRUBIN,TOTAL 0.6 mg/dL (0.2-1.3); BLOOD UREA NITROGEN 19 mg/dL (7-20); CALCIUM 9.6 mg/dL (8.4-10.2); CARBON DIOXIDE 29 mmol/L (22-30); CHLORIDE 102 mmol/L (98-107); GLUCOSE 112 mg/dL (75-110); POTASSIUM 3.9 mmol/L (3.6-5.0); TOTAL PROTEIN 7.4 g/dL (6.3-8.2)
[2019-07-31 06:55] LABS: ACETAMINOPHEN < 10 ug/mL (10-30); ALCOHOL < 10 mg/dL (NONE DETECTED); SALICYLATE < 1.0 mg/dL (2.0-20.0)
[2019-07-31 07:30] LABS: ABSOLUTE EOSINOPHILS # (AUTO) 0.1 10^3/uL (0.0-0.6); ABSOLUTE LYMPHOCYTES (AUTO) 1.5 10^3/uL (0.5-4.7); ABSOLUTE NEUT (AUTO) 2.7 10^3/uL (1.7-8.2); BASOPHILS % (AUTO) 0.8 % (0-2); EOSINOPHILS % (AUTO) 1.6 % (0-6); HEMATOCRIT 44.1 % (37.9-51.0); HEMOGLOBIN 14.9 g/dL (13.5-17.0); LYMPHOCYTES % (AUTO) 27.5 % (13-45); MEAN CORPUSCULAR HEMOGLOBIN 34.3 pg (27.0-33.4); MEAN CORPUSCULAR HGB CONC 33.8 g/dL (32.0-36.0); MEAN CORPUSCULAR VOLUME 101 fl (80-97); MONOCYTES % (AUTO) 19.2 % (3-13); PLATELET COUNT 225 10^3/uL (150-450); RED BLOOD COUNT 4.35 10^6/uL (4.35-5.55); RED CELL DISTRIBUTION WIDTH 14.5 % (11.5-14.0); SEGMENTED NEUTROPHILS % (AUTO) 50.9 % (42-78); TOTAL CELLS COUNTED % (AUTO) 100 %; WHITE BLOOD COUNT 5.3 10^3/uL (4.0-10.5)
--- NOTE | 2019-07-31 07:39 | EKG REPORT ---
SEVERITY:- ABNORMAL ECG - SINUS TACHYCARDIA BORDERLINE LEFT AXIS DEVIATION PROLONGED QT INTERVAL NONSPECIFIC LATERAL ST-T CHANGES : Confirmed by: Alvin Gutierres MD 31-Jul-2019 07:38:32
[2019-07-31 08:29] LABS: AMORPHOUS SEDIMENT,URINE TRACE /HPF; APPEARANCE,URINE CLOUDY; BILIRUBIN,URINE NEGATIVE (NEGATIVE); COLOR,URINE YELLOW; GLUCOSE, URINE NEGATIVE (NEGATIVE); KETONES,URINE NEGATIVE (NEGATIVE); LEUKOCYTE ESTERASE,URINE NEGATIVE (NEGATIVE); NITRITE,URINE NEGATIVE (NEGATIVE); PROTEIN,URINE NEGATIVE (NEGATIVE); URINE SPECIFIC GRAVITY 1.018
[2019-07-31 08:36] LABS: URINE BARBITURATES SCREEN NEGATIVE; URINE BENZODIAZEPINES SCREEN NEGATIVE; URINE COCAINE SCREEN NEGATIVE; URINE MARIJUANA (THC) SCREEN NEGATIVE; URINE METHADONE SCREEN NEGATIVE; URINE PHENCYCLIDINE SCREEN NEGATIVE
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
[2019-07-31] MEDS ORDERED: HALOPERIDOL 2 MG TABLET PO SCH (10:00)
--- NOTE | 2019-07-31 10:19 | PSYCHOLOGICAL NOTE ---
Psych Note - Psych Note Date seen by psych provider: 07/31/19 Time seen by psych provider: 07:15 Psych Note: Reason for consult: Possible Psychosis Patient is a 49year old male who presented to ED via [facility]. There was concern that patient was actively psychotic. Patient states something got after me. Patient continued that it was dark and I couldnt see. Patient states he was trying to get away from whatever it was. Patient states he went to the home he was at for help. Patient states Im my own worst enemy. Patient spoke of things on my shoulder [alluding to good and evil] telling me what to do. Patient guardedly affirmed auditory hallucinations. Patient became emotional as he described his current situation. Patient turned his back to clinician, but was still engaged. Patient would look back every once in a while and make eye contact with clinician. Patient spoke of not having a life like other people. Patient spoke of his fate and coming into this world facing challenges. Patient reports drinking a little bit and using meth about every 2 weeks. Patients urine drug screen is positive for amphetamines. Patient denies suicidal and homicidal ideations. Patient is not linked with mental health medication management or mental health services. Patient declines substance abuse treatment. Patient declines medications and states medications are not helpful. Patient is alert and oriented to person, place, time and circumstance. Mood is flat with congruent affect. Patient was calm and engaged appropriately with clinician. Patients emotions were appropriate for content and environment. Patient denies suicidal and homicidal ideation. Patient denies auditory and visual hallucinations, however guardedly confirmed presence of both. Delusions are currently absent and behavior is congruent with an intact reality based presentation (i.e. organized and linear thought processes). There is no observed behavior that suggests patient is responding to internal stimuli. Eye contact is fair. Conversational speech is within normal rate, tone, and prosody. Intellectual ability appears to be in the below average range. Attention and concentration are fair. Insight, judgment, and impulse control are poor. DSM Diagnosis: Per report, depression Substance Use disorder Medication recommendations per [facility] contracted psychiatrist Dr. Annita MORENO is as follows: NONE Impression/Plan: Patient is cleared from acute psychiatric services. Patient no longer meets IVC criteria per [place] GS 122C. It is recommended that IVC be rescinded. Patient denies suicidal and homicidal ideation. Patient denies auditory and visual hallucinations, however guardedly confirmed presence of both. There is no observed behavior that suggests patient is responding to internal stimuli. It is recommended that patient be linked with mental health professional for medication management and mental health services, to include substance abuse treatment. Patient is provided with mental health resource list for medication management and mental health services. Patient is also provided with community substance abuse treatment options. Dr. Vizcaino was consulted on the care and management of this patient; attending physician is in agreement with recommendations and disposition.
[2019-07-31 14:07] VITALS: BP 128/88
== END 2019-07-31 14:06 | disposition home or self-care (01) ==
LOC: ER 20:34
DX: F32.9 Major depressive disorder, single episode, unspecified (principal); F19.10 Other psychoactive substance abuse, uncomplicated
CPT/HCPCS: 93005; 36415; 80307 ×4; 85025; 80053; 81001; 93010; J3490 ×2; 99285

== ENCOUNTER 2019-08-27 17:17 | Emergency (ER) | payer SELFPAY ==
[2019-08-27 18:22] VITALS: BP 151/108
== END 2019-08-27 20:40 | disposition left against medical advice (07) ==
LOC: ER 17:17
DX: Z53.21 Procedure and treatment not carried out due to patient leaving prior to being seen by health care provider (principal)